=== PATIENT | female | born 1955 | race Caucasian/White ===

== ENCOUNTER 2017-06-11 22:54 | Emergency (ER) | payer OTHER ==
[~2017-06-11] VITALS: Ht 167.6 cm; Wt 73.1 kg
[2017-06-11 22:56] VITALS: TEMP 36.5; Ht 167.6 cm; Wt 73.1 kg
[2017-06-11] MEDS ORDERED: ASPIRIN 324 MG CHEW PO STA (23:11)
[2017-06-11] MEDS ORDERED: LISI2.5T5 PO (23:34)
[2017-06-11] MEDS ORDERED: LEVO112T2 PO (23:36)
[2017-06-11] MEDS ORDERED: LEVO100T PO (23:36)
--- NOTE | 2017-06-11 23:36 | EMERGENCY ROOM VISIT NOTE ---
History Report prepared by Yuan: Abdelrahman Lobo Under the Supervision of: Dr. Jessika Arias M.D. First contact with patient: 23:02 Chief Complaint: CARDIAC ASSESSMENT Stated Complaint: SHOULDER, NECK, JAW PAIN, FAST HEART RATE History of Present Illness The patient is a 61 year old female who presents to the Emergency Room for a cardiac assessment due to worsening left shoulder pain, upper back pain, and neck pain starting earlier today. She additionally states that the pain is sharp in her neck, and she states that she has some chest pain when she takes a deep breath. The patient states that she thought that she was getting a migraine since it had similar symptoms, though when she laid down she noticed her heart was racing and decided to come to the ED for evaluation. She states that she does not currently have a headache. She states that she tried a heating pad, and this did not relieve the pain. The patient states that she had the flu in April and was treated, and then got pneumonia a few weeks later, and she just finished her antibiotics a week and a half ago. The patient is additionally complaining of an earache. She did not take any aspirin, and she denies any history of blood clots, stroke, heart issues, cancer, or smoking. Source of History: patient Onset: earlier today Position: neck, shoulder (left), back (upper) Quality: sharp Timing: worsening Associated Symptoms: + chest pain, No headache Note: Associated symptoms: Heart racing and ear ache. Review of Systems See HPI for pertinent positives & negatives. A total of 10 systems reviewed and were otherwise negative. Past Medical & Surgical Medical Problems: (1) HTN (hypertension) (2) Hypothyroid Social History Smoking Status: Former Smoker Marital Status: single Housing Status: lives with family Occupation Status: employed Current/Historical Medications Scheduled Levothyroxine Sodium (Synthroid), 100 MCG PO 5XWK Levothyroxine Sodium (Synthroid), 112 MCG PO 2XWK Lisinopril (Lisinopril), 2.5 MG PO DAILY Scheduled PRN Rizatriptan Benzoate (Maxalt), 1 TAB PO UD PRN for Migraine Allergies Coded Allergies: No Known Allergies (Unverified , 06/11/17) Physical Exam Vital Signs Date Time Temp Pulse Resp B/P (MAP) Pulse Ox O2 Delivery O2 Flow Rate FiO2 06/12/17 01:25 76 17 129/87 96 06/12/17 00:53 78 15 120/76 98 Room Air 06/11/17 23:15 Room Air 06/11/17 23:08 93 06/11/17 22:56 36.5 95 20 153/92 100 Room Air Physical Exam Vital signs reviewed. General: Well-appearing female, in no significant distress. HEENT: No scleral icterus, PERRLA, neck supple. Atraumatic. Cardiovascular: Regular rate and rhythm, no extra sounds. Pulmonary: Clear to auscultation bilaterally, normal work of breathing. Abdomen: Soft, nontender, nondistended, positive bowel sounds. Musculoskeletal: Atraumatic, no peripheral edema. Neurologic: Patient awake alert and oriented x 3, full strength in all 4 extremities. Cranial nerves 2 through 12 grossly intact. Skin: Warm, dry, no rash Medical Decision & Procedures ER Provider Diagnostic Interpretation: X-ray results as stated below per interpretation by me: One View Chest; No lung consolidation. No CHF. Airway is midline. Laboratory Results 06/11/17 23:28 Red Blood Count 4.06, Mean Corpuscular Volume 87.7, Mean Corpuscular Hemoglobin 29.8, Mean Corpuscular Hemoglobin Concent 34.0, Mean Platelet Volume 9.3, Neutrophils (%) (Auto) 58.4, Lymphocytes (%) (Auto) 31.4, Monocytes (%) (Auto) 7.5, Eosinophils (%) (Auto) 2.2, Basophils (%) (Auto) 0.4, Neutrophils # (Auto) 5.67, Lymphocytes # (Auto) 3.05, Monocytes # (Auto) 0.73, Eosinophils # (Auto) 0.21, Basophils # (Auto) 0.04 06/11/17 23:28 Test 06/11/17 23:28 06/11/17 23:32 06/12/17 00:55 White Blood Count 9.71 K/uL (4.8-10.8) Red Blood Count 4.06 M/uL (4.2-5.4) Hemoglobin 12.1 g/dL (12.0-16.0) Hematocrit 35.6 % (37-47) Mean Corpuscular Volume 87.7 fL (80-100) Mean Corpuscular Hemoglobin 29.8 pg (25-34) Mean Corpuscular Hemoglobin Concent 34.0 g/dl (32-36) Platelet Count 268 K/uL (130-400) Mean Platelet Volume 9.3 fL (7.4-10.4) Neutrophils (%) (Auto) 58.4 % Lymphocytes (%) (Auto) 31.4 % Monocytes (%) (Auto) 7.5 % Eosinophils (%) (Auto) 2.2 % Basophils (%) (Auto) 0.4 % Neutrophils # (Auto) 5.67 K/uL (1.4-6.5) Lymphocytes # (Auto) 3.05 K/uL (1.2-3.4) Monocytes # (Auto) 0.73 K/uL (0.11-0.59) Eosinophils # (Auto) 0.21 K/uL (0-0.5) Basophils # (Auto) 0.04 K/uL (0-0.2) RDW Standard Deviation 42.2 fL (36.4-46.3) RDW Coefficient of Variation 13.1 % (11.5-14.5) Immature Granulocyte % (Auto) 0.1 % Immature Granulocyte # (Auto) 0.01 K/uL (0.00-0.02) Anion Gap 8.0 mmol/L (3-11) Est Creatinine Clear Calc Drug Dose 72.9 ml/min Estimated GFR () 86.9 Estimated GFR (Non- 75.0 BUN/Creatinine Ratio 23.0 (10-20) Calcium Level 8.9 mg/dl (8.5-10.1) Total Bilirubin 0.4 mg/dl (0.2-1) Direct Bilirubin < 0.1 mg/dl (0-0.2) Aspartate Amino Transf (AST/SGOT) 17 U/L (15-37) Alanine Aminotransferase (ALT/SGPT) 23 U/L (12-78) Alkaline Phosphatase 43 U/L (45-117) Total Creatine Kinase 59 U/L (26-192) Creatine Kinase MB 0.5 ng/ml (0.5-3.6) Creatine Kinase MB Ratio 0.8 (0-3.0) Total Protein 7.9 gm/dl (6.4-8.2) Albumin 4.0 gm/dl (3.4-5.0) Thyroid Stimulating Hormone (TSH) 3.740 uIu/ml (0.300-4.500) Free Thyroxine 1.13 ng/dl (0.80-1.60) Bedside D-Dimer 361 ng/mlFEU (0-450) Bedside Troponin I < 0.030 ng/ml (0-0.045) Laboratory results per my review. Medications Administered Medications (Trade) Dose Ordered Sig/Devon Route Start Time Stop Time Status Last Admin Dose Admin Aspirin (Aspirin Chew) 324 mg NOW STAT PO 06/11/17 23:11 06/11/17 23:13 DC 06/11/17 23:33 324 MG ECG Indication: chest pain Rate (beats per minute): 99 Rhythm: normal sinus Findings: no acute ischemic change, no ectopy, other (T-wave flattening in the anterior leads. QTc is 469.) Change: Patient's electrocardiogram interpreted by me. ED Course 2302: Past medical records reviewed. The patient was evaluated in room C3. A complete history and physical examination was performed. 2311: Aspirin 324mg PO 0110: Upon reevaluation, the patient appeared to have improvement of her symptoms. I discussed findings with her. She verbalized agreement of the treatment plan. She was discharged home. Medical Decision Differential diagnosis: Etiologies such as cardiac ischemia, aortic dissection, pulmonary embolism, pneumonia, pneumothorax, musculoskeletal, infections, pericarditis, myocarditis , esophageal rupture, gastrointestinal, as well as others were entertained. This patient was evaluated and appeared to be in no significant distress. IV access was obtained and laboratory work was drawn. 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 She was given aspirin 324 mg to chew. Patient in no pain at the time of my evaluation. Cardiac enzymes are negative 2. Chest x-ray is clear. EKG reveals no acute ischemia. Patient is afebrile and her d-dimer is normal. I suspect the pain is musculoskeletal in nature. The patient will be discharged to follow-up with her PCP this week. She was advised to avoid strenuous exercise until she is reevaluated. She will return to the emergency department for worsening of symptoms or any medical concerns. Medication Reconcilliation Current Medication List: was personally reviewed by me Blood Pressure Screening Patient's blood pressure: Elevated blood pressure Blood pressure disposition: Elevated BP felt to be situational Impression Primary Impression: Chest pain radiating to upper extremity Scribe Attestation The scribe's documentation has been prepared under my direction and personally reviewed by me in its entirety. I confirm that the note above accurately reflects all work, treatment, procedures, and medical decision making performed by me. Departure Information Dispostion Home / Self-Care Referrals Kathy Carrasquillo M.D. (PCP) Forms IMPORTANT VISIT INFORMATION Patient Instructions My [facility] Additional Instructions Diagnosis: Chest pain Continue medications as prescribed. Follow-up with your physician this week for reevaluation and blood pressure recheck. Avoid excessive strenuous activity until you are reevaluated and consideration of further cardiac testing as discussed with your doctor. Return to the emergency department for worsening of symptoms or any medical concerns.
[2017-06-11] MEDS ORDERED: RIZA5TAB10 PO (23:37)
[2017-06-11 23:38] LABS: BASO % 0.4 %; BASO ABS # 0.04 K/uL (0-0.2); EOS % 2.2 %; EOS ABS # 0.21 K/uL (0-0.5); HEMATOCRIT 35.6 % (37-47); HEMOGLOBIN 12.1 g/dL (12.0-16.0); IG# 0.01 K/uL (0.00-0.02); LYMPH % 31.4 %; LYMPH ABS # 3.05 K/uL (1.2-3.4); MEAN CELL VOLUME 87.7 fL (80-100); MEAN CORPUSCULAR HEMOGLOBIN 29.8 pg (25-34); MEAN PLATELET VOLUME 9.3 fL (7.4-10.4); MONO % 7.5 %; MONO ABS # 0.73 K/uL (0.11-0.59); NEUT % 58.4 %; NEUT ABS # 5.67 K/uL (1.4-6.5); PLATELET COUNT 268 K/uL (130-400); RED CELL DISTRIBUTION WIDTH CV 13.1 % (11.5-14.5); RED CELL DISTRIBUTION WIDTH SD 42.2 fL (36.4-46.3); WHITE BLOOD COUNT 9.71 K/uL (4.8-10.8)
[2017-06-11 23:56] LABS: ALT/SGPT 23 U/L (12-78); BLOOD UREA NITROGEN 20 mg/dl (7-18); CALCIUM 8.9 mg/dl (8.5-10.1); CARBON DIOXIDE 25 mmol/L (21-32); CREATININE 0.85 mg/dl (0.60-1.20); GLUCOSE 103 mg/dl (70-99); POTASSIUM 3.6 mmol/L (3.5-5.1); SODIUM 138 mmol/L (136-145)
[2017-06-12 00:01] LABS: ALKALINE PHOSPHATASE 43 U/L (45-117); AST/SGOT 17 U/L (15-37); CKMB 0.5 ng/ml (0.5-3.6); TOTAL PROTEIN 7.9 gm/dl (6.4-8.2)
[2017-06-12 01:25] VITALS: BP 129/87; PULSE 76; O2SAT 96
--- NOTE | 2017-06-12 06:40 | DIAGNOSTIC IMAGING REPORT ---
CHEST ONE VIEW PORTABLE CLINICAL HISTORY: Chest pain. COMPARISON STUDY: No previous studies for comparison. FINDINGS: Lung volumes are normal. No pneumothorax or pleural effusion is noted. There is no consolidation to suggest pneumonia and there is no evidence for pulmonary edema. Cardiac size is normal. Mediastinal contours are normal. IMPRESSION: No acute cardiopulmonary findings. Electronically signed by: Babak Vazquez M.D. 06/12/2017 6:38 AM Dictated Date/Time: 06/12/2017 6:37 AM
== END 2017-06-12 01:27 | disposition home or self-care (01) ==
LOC: C.EDB 22:56 → C.EDC 06-12 01:27
DX: R07.9 Chest pain, unspecified (principal); M25.512 Pain in left shoulder; I10 Essential (primary) hypertension; E03.9 Hypothyroidism, unspecified; Z87.891 Personal history of nicotine dependence; Z79.899 Other long term (current) drug therapy

== ENCOUNTER 2020-04-01 22:40 | Inpatient (IN) ==
[2020-04-01] MEDS ORDERED: ALBUTEROL HFA 8 GM INHALER INH ONE (23:05)
[2020-04-01] MEDS ORDERED: methylPREDNISolone 125 MG/2 ML VIAL IV STA (23:05)
[2020-04-01] MEDS ORDERED: NITROGLYCERIN SL 0.4 MG/TAB TAB SL STA (23:41)
[2020-04-01] MEDS ORDERED: NITROGLYCERIN 2% OINTMENT 30GM TUBE EXT STA (23:41)
[2020-04-01] MEDS ORDERED: FUROSEMIDE 40 MG/4 ML VIAL IV STA (23:41)
[2020-04-01 23:48] LABS: Basophils # (auto) 0.03 K/uL (0-0.2); Basophils % (auto) 0.3 %; Eosinophils # (auto) 0.13 K/uL (0-0.5); Eosinophils % (auto) 1.3 %; Hematocrit (blood only) 38.3 % (37-47); Hemoglobin 12.5 g/dL (12.0-16.0); Immature Granulocytes # (auto) 0.02 K/uL (0.00-0.02); Immature Granulocytes % (auto) 0.2 %; Lymphocytes # (auto) 2.23 K/uL (1.2-3.4); Lymphocytes % (auto) 22.5 %; Mean Corpuscular Hemoglobin 29.4 pg (25-34); Mean Corpuscular Hgb Conc 32.6 g/dL (32-36); Mean Corpuscular Volume 90.1 fL (80-100); Mean Platelet Volume 9.7 fL (7.4-10.4); Monocytes # (auto) 0.67 K/uL (0.11-0.59); Monocytes % (auto) 6.8 %; Neutrophils # (auto) 6.82 K/uL (1.4-6.5); Neutrophils % (auto) 68.9 %; Platelet Count 428 K/uL (130-400); RDW Coefficient of Variation 13.7 % (11.5-14.5); RDW Standard Deviation 45.1 fL (36.4-46.3); Red Blood Count 4.25 M/uL (4.2-5.4)
--- NOTE | 2020-04-01 23:58 | Emergency Department Note ---
Impression & Plan Acute dyspnea, Pulmonary edema ED Provider Note INFORMANT: Patient ED PROVIDER(S): Ivan Bernardo MD CHIEF COMPLAINT: Shortness of breath PLAN: Disposition: Admitted Condition: Good MEDICAL DECISION MAKING: Patient presented with acute dyspnea and had pink frothy sputum with rales on examination. She was moderately hypertensive and this was concerning for flash pulmonary edema. Her ECG did not reveal any acute ischemic findings. She was experiencing some chest discomfort. She underwent a work-up. She was initially given Solu-Medrol and albuterol which did not seem to help. Chest x-ray was performed and she was found to have pulmonary edema and fluid in the right fissure. This was concerning for a cardiac etiology. Her CBC and chemistry panel was unremarkable. Her troponin was mildly elevated as was her D-dimer. BMP was within normal limits. The patient was given sublingual nitro x1, nitro paste and 20 mg of IV Lasix. This in conjunction with supplemental oxygen made her feel much better. Her breathing was easier. Her blood pressure was improved. She had a mild headache after the nitro and was given Tylenol. The patient underwent CT imaging which revealed findings consistent with pulmonary edema. Incidentally she also was found to have 2 left-sided rib fractures. The patient notes falling about 3 weeks ago onto her left side accidentally. There is no evidence of pulmonary embolism or pneumothorax. No obvious pneumonia. Patient's Covid testing was negative. She was given oral aspirin. Repeat ECG was performed and again did not reveal any ST elevation however there were T wave inversions inferiorly. I suspect the patient is suffering from pulmonary edema and this is likely due to an acute non-ST elevation [place]. IV heparin was initiated. The patient was educated. Consultation was made with Dr. Luis Carlos Martínez, [facility]. The patient was evaluated in the ER and admitted for further management. Triage Nursing notes reviewed and agree them. Vital Signs: reviewed and remarkable for hypertension and increased respiratory rate Differential diagnosis: Reactive airway disease, pneumonia, pneumothorax, COPD, CHF, infections, cardiac ischemia, pulmonary embolism, musculoskeletal, gastrointestinal, as well as other pathologies. Diagnostics interpreted by me: ECG: Twelve-lead ECG reveals a normal sinus rhythm at 92 bpm. Left atrial enlargement present. No ST elevation or depression. Normal axis and QRS. No PVCs. ECG #2 reveals a normal sinus rhythm at 87 bpm. There is left atrial enlargement. Inferior Q waves and T wave inversions noted. No ST elevation. No PVCs or PACs. Normal axis. When compared to the first ECG the T wave invers ions are new. Cardiac Monitoring: Cardiac monitoring ordered by me: The patient was placed on continuous cardiac monitoring and observed. It revealed a normal sinus rhythm at 99 beats per minute without ectopy or evidence of dysrhythmia. Imaging studies: Portable chest x-ray reveals mild pulmonary edema, fluid in the right fissure. No free air. Normal mediastinum. When compared to prior the fluid and edema are new. Consultation(s): [facility] HPI: The patient is a 64 year old female who presents to the Emergency Room with complaints of acute shortness of breath. This started this evening around 8:00 and is worsening. The patient also notes the following associated symptoms, coughing pink frothy sputum, chest discomfort with breathing. The patient has found no relieving factors. Current pain is rated as 3/10. Denies any Covid exposures. No loss of taste or smell. No prior history of the same. The patient does have a history of hypertension. Pt denies LOC, headache, fevers, chills, diaphoresis, visual changes, neck pain, nausea, vomiting, abdominal thais n, back pain, melena, hematochezia, urinary symptoms, numbness, weakness, lymphadenopathy, rash, or other complaints. ROS: See above HPI for pertinent positives & negatives. A total of 10 systems reviewed and were otherwise negative. PAST MEDICAL HISTORY:See Below, hypertension PAST SURGICAL HISTORY:See Below, FAMILY HISTORY:See Below SOCIAL HISTORY:See Below, no smoking HOME MEDICATIONS:See Below ALLERGIES:See Below VITALS:See Below PHYSICAL EXAMINATION: GENERAL: Awake, alert, dyspneic, in mild distress HENT: Normocephalic, atraumatic. Oropharynx unremarkable. EYES: Normal conjunctiva. Sclera non-icteric. NECK: Inspection normal. Non-tender. Supple. No nuchal rigidity. FROM. No masses. RESPIRATORY: Increased respiratory effort. Scattered wheezing and rales noted bilaterally. Cough productive of pink sputum. No obvious hemoptysis. CARDIAC: Borderline tachycardic rate. Normal rhythm. No murmurs. No rubs. Extremities warm and well perfused. Pulses equal. No JVD. GI: Soft, non-distended. No tenderness to palpation. No rebound or guarding. No masses. RECTAL: Deferred. MUSCULOSKELETAL: Atraumatic. Chest examination reveals no tenderness. The back is symmetrical on inspection without obvious abnormality. There is no CVA tenderness to palpation. No joint edema. LOWER EXTREMITIES: Calves are equal size bilaterally and non-tender. No edema. No discoloration. NEURO: Normal sensorium. No sensory or motor deficits noted. SKIN: No rash or jaundice noted. ED COURSE: Critical Care: I have personally spent greater than 40 minutes of critical care time in the direct management of this patient. This includes bedside care, interpretation of diagnostic studies, and testing, discussion with consultants, patient, and other required patient management activities. These minutes are in excess of all separately billable procedures. Ivan Bernardo MD Past Med/Surg History Medical History (Updated 04/01/20 @ 23:54 by Ivan Bernardo MD) HTN (hypertension) Hypothyroid Migraine Social History Smoking Status: Former smoker Feels Safe at Home: Yes Allergies Allergies Allergy/AdvReac Type Severity Reaction Status Date / Time latex Allergy Intermediate RASH, SKIN Verified 04/02/20 00:01 IRRITATION nickel Allergy Intermediate RASH, SKIN Verified 04/02/20 00:01 IRRITATION IV contrast Allergy Hives Uncoded 04/02/20 00:57 Home Meds Home Medications Medication Instructions Recorded Confirmed levothyroxine [Synthroid] 112 mcg PO DAILYBB 09/25/19 04/02/20 lisinopril [Zestril] 2.5 mg PO DAILYBB 09/25/19 04/02/20 loratadine [Claritin] 10 mg PO DAILYBB 09/25/19 04/02/20 rizatriptan [Maxalt] 10 mg PO Q2H PRN MDD 30 mg 09/25/19 04/02/20 triamcinolone acetonide [Triderm] 1 applic TOPICAL BID PRN 09/25/19 04/02/20 vitamin B complex 1 cap PO DAILYBB 09/25/19 04/02/20 Results & Data (ED) Vital Signs Vital Signs - 24 hr 04/01/20 22:42 04/01/20 23:43 04/01/20 23:45 Temperature 36.6 C Temperature Source Oral Pulse Rate 102 H Pulse Rate [Apical] 90 86 Pulse Rate from SpO2 Sensor Respiratory Rate 18 28 H 28 H Respiratory Effort / Characteristics Non-Labored Non-Labored Spontaneous Non-Labored Spontaneous Respiratory Depth Normal Blood Pressure 184/109 H Blood Pressure [Left Arm] 150/100 H 147/102 H Blood Pressure Mean 134 Blood Pressure Mean [Left Arm] 116 117 Pulse Oximetry 95 98 98 Oxygen Delivery Method Room Air Nasal Cannula Nasal Cannula Oxygen Flow Rate 3 2 Sepsis Recent Fever Within 48 Hours No Sepsis New/Unexplained Change in Mental Status No Sepsis Action Taken by Nursing No Action Required 04/01/20 23:58 04/01/20 23:59 04/02/20 00:00 Temperature Temperature Source Pulse Rate Pulse Rate [Apical] 88 86 Pulse Rate from SpO2 Sensor Respiratory Rate 28 H 30 H Respiratory Effort / Characteristics Non-Labored Spontaneous Non-Labored Spontaneous Spontaneous Respiratory Depth Blood Pressure Blood Pressure [Left Arm] 160/113 H 138/95 Blood Pressure Mean Blood Pressure Mean [Left Arm] 128 109 Pulse Oximetry 93 99 Oxygen Delivery Method Room Air Nasal Cannula Oxygen Flow Rate 3 Sepsis Recent Fever Within 48 Hours Sepsis New/Unexplained Change in Mental Status Sepsis Action Taken by Nursing 04/02/20 00:04 04/02/20 00:16 04/02/20 00:30 Temperature Temperature Source Pulse Rate 95 H 94 H Pulse Rate [Apical] 94 H Pulse Rate from SpO2 Sensor Respiratory Rate 24 31 H 30 H Respiratory Effort / Characteristics Non-Labored Spontaneous Respiratory Depth Blood Pressure 150/97 H Blood Pressure [Left Arm] 137/93 Blood Pressure Mean 111 Blood Pressure Mean [Left Arm] 107 Pulse Oximetry 99 100 100 Oxygen Delivery Method Nasal Cannula Nasal Cannula Nasal Cannula Oxygen Flow Rate 3 3 Sepsis Recent Fever Within 48 Hours Sepsis New/Unexplained Change in Mental Status Sepsis Action Taken by Nursing 04/02/20 01:19 04/02/20 01:20 Temperature Temperature Source Pulse Rate 95 H 95 H Pulse Rate [Apical] Pulse Rate from SpO2 Sensor 96 H 95 H Respiratory Rate 21 23 Respiratory Effort / Characteristics Respiratory Depth Blood Pressure 137/98 Blood Pressure [Left Arm] Blood Pressure Mean 109 Blood Pressure Mean [Left Arm] Pulse Oximetry 97 98 Oxygen Delivery Method Room Air Room Air Oxygen Flow Rate Sepsis Recent Fever Within 48 Hours Sepsis New/Unexplained Change in Mental Status Sepsis Action Taken by Nursing Laboratory Data Result diagrams: 04/01/20 23:03 04/01/20 23:03 Lab Results 04/01/20 04/01/20 04/01/20 Range/Units 23:03 23:03 23:03 WBC 9.90 (4.8-10.8) K/uL RBC 4.25 (4.2-5.4) M/uL Hgb 12.5 (12.0-16.0) g/dL Hct 38.3 (37-47) % MCV 90.1 (80-100) fL MCH 29.4 (25-34) pg MCHC 32.6 (32-36) g/dL RDW Std Deviation 45.1 (36.4-46.3) fL RDW Coeff of Jayson 13.7 (11.5-14.5) % Plt Count 428 H (130-400) K/uL MPV 9.7 (7.4-10.4) fL Immature Gran % (Auto) 0.2 % Neut % (Auto) 68.9 % Lymph % (Auto) 22.5 % [place] % (Auto) 6.8 % Eos % (Auto) 1.3 % Baso % (Auto) 0.3 % Neut # (Auto) 6.82 H (1.4-6.5) K/uL Lymph # (Auto) 2.23 (1.2-3.4) K/uL [place] # (Auto) 0.67 H (0.11-0.59) K/uL Eos # (Auto) 0.13 (0-0.5) K/uL Baso # (Auto) 0.03 (0-0.2) K/uL Immature Gran # (Auto) 0.02 (0.00-0.02) K/uL PT 10.3 (9.0-12.0) Seconds INR 1.0 (0.9-1.1) APTT 27.2 (21.0-31.0) Seconds PTT Ratio 1.0 D-Dimer 1020 H* (0-500) ug/L FEU Sodium 138 (136-145) mmol/L Potassium 3.7 (3.5-5.1) mmol/L Chloride 106 (98-107) mmol/L Carbon Dioxide 26 (21-32) mmol/L Anion Gap 6.0 (3-11) BUN 22 H (7-18) mg/dl Creatinine 0.84 (0.6-1.2) mg/dl Est Cr Clr Drug Dosing 70.4 ml/min Est GFR ( Amer) 86.3 Est GFR (Non-Af Amer) 74.5 BUN/Creatinine Ratio 25.6 H (10-20) Glucose 110 H (70-99) mg/dl Lactate (0.4-2.0) mmol/L Calcium 8.8 (8.5-10.1) mg/dl Magnesium 2.1 (1.8-2.4) mg/dl Total Bilirubin 0.4 (0.2-1) mg/dl AST 21 (15-37) U/L ALT 20 (12-78) U/L Alkaline Phosphatase 67 (45-117) U/L Troponin I 0.702 H* (0-0.045) ng/ml NT-Pro-B Natriuret Pep 343 (0-900) pg/ml Total Protein 7.7 (6.4-8.2) gm/dl Albumin 3.8 (3.4-5.0) gm/dl Globulin 3.9 (2.5-4.0) gm/dl Albumin/Globulin Ratio 1.0 (0.9-2) Urine Color Urine Appearance (Clear) Urine pH (4.5-7.5) Ur Specific [place] (1.000-1.030) Urine Protein (Negative) Urine Glucose (UA) (Negative) Urine Ketones (Negative) Urine Blood (Negative) Urine Nitrite (Negative) Urine Bilirubin (Negative) Urine Urobilinogen (Negative) Ur Leukocyte Esterase (Negative) COVID-19 Eval Order COVID-19 PCR (Negative) Influenza Type A (PCR) (Neg) Influenza Type B (PCR) (Neg) RSV (RT-PCR) (Neg) 04/01/20 04/01/20 04/01/20 Range/Units 23:03 23:03 23:45 WBC (4.8-10.8) K/uL RBC (4.2-5.4) M/uL Hgb (12.0-16.0) g/dL Hct (37-47) % MCV (80-100) fL MCH (25-34) pg MCHC (32-36) g/dL RDW Std Deviation (36.4-46.3) fL RDW Coeff of Jayson (11.5-14.5) % Plt Count (130-400) K/uL MPV (7.4-10.4) fL Immature Gran % (Auto) % Neut % (Auto) % Lymph % (Auto) % [place] % (Auto) % Eos % (Auto) % Baso % (Auto) % Neut # (Auto) (1.4-6.5) K/uL Lymph # (Auto) (1.2-3.4) K/uL [place] # (Auto) (0.11-0.59) K/uL Eos # (Auto) (0-0.5) K/uL Baso # (Auto) (0-0.2) K/uL Immature Gran # (Auto) (0.00-0.02) K/uL PT (9.0-12.0) Seconds INR (0.9-1.1) APTT (21.0-31.0) Seconds PTT Ratio D-Dimer (0-500) ug/L FEU Sodium (136-145) mmol/L Potassium (3.5-5.1) mmol/L Chloride (98-107) mmol/L Carbon Dioxide (21-32) mmol/L Anion Gap (3-11) BUN (7-18) mg/dl Creatinine (0.6-1.2) mg/dl Est Cr Clr Drug Dosing ml/min Est GFR ( Amer) Est GFR (Non-Af Amer) BUN/Creatinine Ratio (10-20) Glucose (70-99) mg/dl Lactate 0.9 (0.4-2.0) mmol/L Calcium (8.5-10.1) mg/dl Magnesium (1.8-2.4) mg/dl Total Bilirubin (0.2-1) mg/dl AST (15-37) U/L ALT (12-78) U/L Alkaline Phosphatase (45-117) U/L Troponin I (0-0.045) ng/ml NT-Pro-B Natriuret Pep (0-900) pg/ml Total Protein (6.4-8.2) gm/dl Albumin (3.4-5.0) gm/dl Globulin (2.5-4.0) gm/dl Albumin/Globulin Ratio (0.9-2) Urine Color Urine Appearance (Clear) Urine pH (4.5-7.5) Ur Specific [place] (1.000-1.030) Urine Protein (Negative) Urine Glucose (UA) (Negative) Urine Ketones (Negative) Urine Blood (Negative) Urine Nitrite (Negative) Urine Bilirubin (Negative) Urine Urobilinogen (Negative) Ur Leukocyte Esterase (Negative) COVID-19 Eval Order CovFluRsv at [facility] COVID-19 PCR NEGATIVE (Negative) Influenza Type A (PCR) Negative (Neg) Influenza Type B (PCR) Negative (Neg) RSV (RT-PCR) Negative (Neg) 04/02/20 Range/Units 00:17 WBC (4.8-10.8) K/uL RBC (4.2-5.4) M/uL Hgb (12.0-16.0) g/dL Hct (37-47) % MCV (80-100) fL MCH (25-34) pg MCHC (32-36) g/dL RDW Std Deviation (36.4-46.3) fL RDW Coeff of Jayson (11.5-14.5) % Plt Count (130-400) K/uL MPV (7.4-10.4) fL Immature Gran % (Auto) % Neut % (Auto) % Lymph % (Auto) % [place] % (Auto) % Eos % (Auto) % Baso % (Auto) % Neut # (Auto) (1.4-6.5) K/uL Lymph # (Auto) (1.2-3.4) K/uL [place] # (Auto) (0.11-0.59) K/uL Eos # (Auto) (0-0.5) K/uL Baso # (Auto) (0-0.2) K/uL Immature Gran # (Auto) (0.00-0.02) K/uL PT (9.0-12.0) Seconds INR (0.9-1.1) APTT (21.0-31.0) Seconds PTT Ratio D-Dimer (0-500) ug/L FEU Sodium (136-145) mmol/L Potassium (3.5-5.1) mmol/L Chloride (98-107) mmol/L Carbon Dioxide (21-32) mmol/L Anion Gap (3-11) BUN (7-18) mg/dl Creatinine (0.6-1.2) mg/dl Est Cr Clr Drug Dosing ml/min Est GFR ( Amer) Est GFR (Non-Af Amer) BUN/Creatinine Ratio (10-20) Glucose (70-99) mg/dl Lactate (0.4-2.0) mmol/L Calcium (8.5-10.1) mg/dl Magnesium (1.8-2.4) mg/dl Total Bilirubin (0.2-1) mg/dl AST (15-37) U/L ALT (12-78) U/L Alkaline Phosphatase (45-117) U/L Troponin I (0-0.045) ng/ml NT-Pro-B Natriuret Pep (0-900) pg/ml Total Protein (6.4-8.2) gm/dl Albumin (3.4-5.0) gm/dl Globulin (2.5-4.0) gm/dl Albumin/Globulin Ratio (0.9-2) Urine Color Yellow Urine Appearance Clear (Clear) Urine pH 5.0 (4.5-7.5) Ur Specific [place] 1.013 (1.000-1.030) Urine Protein Negative (Negative) Urine Glucose (UA) Negative (Negative) Urine Ketones Trace H (Negative) Urine Blood Negative (Negative) Urine Nitrite Negative (Negative) Urine Bilirubin Negative (Negative) Urine Urobilinogen Negative (Negative) Ur Leukocyte Esterase Negative (Negative) COVID-19 Eval Order COVID-19 PCR (Negative) Influenza Type A (PCR) (Neg) Influenza Type B (PCR) (Neg) RSV (RT-PCR) (Neg) Administered Medications Discontinued Medications Acetaminophen (Acetaminophen 500 Mg Tab) 1,000 mg PO NOW STA Stop: 04/02/20 00:07 Last Admin: 04/02/20 00:11 Dose: 1,000 mg Documented by: [id number] Albuterol (Albuterol Hfa 8 Gm Inhaler) 6 puffs INH NOW ONE Stop: 04/01/20 23:06 Last Admin: 04/01/20 23:16 Dose: 6 puffs Documented by: [id number] Diphenhydramine HCl (Diphenhydramine 50 Mg/Ml Vial) 50 mg IV NOW STA Stop: 04/02/20 00:53 Last Admin: 04/02/20 00:58 Dose: 50 mg Documented by: [id number] Furosemide (Furosemide 40 Mg/4 Ml Vial) 20 mg IV NOW STA Stop: 04/01/20 23:42 Last Admin: 04/01/20 23:56 Dose: 20 mg Documented by: [id number] Famotidine (Pepcid 20mg Iv Push) 20 mg in 5 mls @ 2.5 mls/min IV NOW STA Stop: 04/02/20 00:53 Last Admin: 04/02/20 00:55 Dose: 2.5 mls/min Documented by: [id number] Ioversol (Optiray 320 125ml) 117 ml IV ONCE ONE Stop: 04/02/20 00:35 Last Admin: 04/02/20 00:35 Dose: 117 ml Documented by: [id number] Methylprednisolone (Methylprednisolone 125 Mg/2 Ml Vial) 125 mg IV NOW STA Stop: 04/01/20 23:06 Last Admin: 04/01/20 23:32 Dose: 125 mg Documented by: [id number] Nitroglycerin (Nitroglycerin Sl 0.4 Mg/Tab Tab) 0.4 mg SL NOW STA Stop: 04/01/20 23:42 Last Admin: 04/01/20 23:55 Dose: 0.4 mg Documented by: [id number] Nitroglycerin (Nitroglycerin 2% Ointment 30gm Tube) 0.5 inch EXT NOW STA Stop: 04/01/20 23:42 Last Admin: 04/01/20 23:56 Dose: 0.5 inch Documented by: [id number] Discharge Plan Visit Data Chief Complaint: Respiratory Problems Stated Complaint: RATTLE IN CHEST ED Provider: Ivan Bernardo Discharge Problem: Acute dyspnea, Pulmonary edema Forms Stand Alone Forms: [facility] Prescriptions Prescriptions: No Action rizatriptan [Maxalt] 10 mg tablet 10 mg PO Q2H MDD 30 mg PRN (Reason: Migraine Headache) RF: 0 triamcinolone acetonide [Triderm] 0.1 % cream 1 applic TOPICAL BID PRN (Reason: Itching) RF: 0 lisinopril [Zestril] 2.5 mg tablet 2.5 mg PO DAILYBB RF: 0 loratadine [Claritin] 10 mg Tablet 10 mg PO DAILYBB RF: 0 vitamin B complex Capsule 1 cap PO DAILYBB RF: 0 levothyroxine [Synthroid] 112 mcg tablet 112 mcg PO DAILYBB RF: 0
[2020-04-02 00:06] LABS: Albumin Level 3.8 gm/dl (3.4-5.0); BUN Creatinine Ratio 25.6 (10-20); Calcium 8.8 mg/dl (8.5-10.1); Creatinine Clr Calc Pharmacy 70.4 ml/min; Est GFR (African American) 86.3; Est GFR (Non-African American) 74.5; Magnesium 2.1 mg/dl (1.8-2.4); Potassium 3.7 mmol/L (3.5-5.1)
[2020-04-02] MEDS ORDERED: ACETAMINOPHEN 500 MG TAB PO STA (00:06)
[2020-04-02 00:14] LABS: Partial Thromboplastin Time 27.2 Seconds (21.0-31.0); Prothrombin Time 10.3 Seconds (9.0-12.0)
[2020-04-02 00:17] LABS: D Dimer 1020 ug/L FEU (0-500)
[2020-04-02 00:18] LABS: Bilirubin,Total 0.4 mg/dl (0.2-1); Globulin 3.9 gm/dl (2.5-4.0); Total Protein 7.7 gm/dl (6.4-8.2); Troponin I 0.702 ng/ml (0-0.045)
[2020-04-02 00:30] LABS: Appearance Urine Clear (Clear); Bilirubin Urine Negative (Negative); Blood Urine Negative (Negative); Color Urine Yellow; Glucose Urine UA Negative (Negative); Ketones Urine Trace (Negative); Leukocyte Esterase Urine Negative (Negative); Nitrite Urine Negative (Negative); Protein Urine Negative (Negative); Specific Gravity Urine 1.013 (1.000-1.030); Urobilinogen Urine Negative (Negative)
[2020-04-02] MEDS ORDERED: OPTIRAY 320 125ml IV ONE (00:34)
[2020-04-02 00:41] LABS: Influenza A virus by PCR Negative (Neg); Influenza B virus by PCR Negative (Neg); RSV by PCR Negative (Neg); SARS CoV2 RNA(COVID-19) InHosp NEGATIVE (Negative)
[2020-04-02] MEDS ORDERED: FAMOTIDINE 20MG IV PUSH 20 MG/5 ML SYR IV STA (00:52)
[2020-04-02] MEDS ORDERED: diphenhydrAMINE 50 MG/ML VIAL IV STA (00:52)
[2020-04-02] MEDS ORDERED: ASPIRIN CHEW 324 MG PO STA (01:48)
[2020-04-02] MEDS ORDERED: HEPARIN SOD (PORCINE) 1000 UNIT/ML 10 ML VIAL ONE (02:10)
[2020-04-02] MEDS: HEPARIN SODIUM/DEXTROSE 25,000 UNITS/500 ML BAG IV SCH ×2 (02:14→21:37)
[2020-04-02] MEDS ORDERED: METOPROLOL TARTRATE 25 MG TAB PO STA (02:17)
--- NOTE | 2020-04-02 03:06 | History & Physical Report ---
Date of Service April 02, 2020 Assessment & Plan (1) Acute CHF: Secondary to NSTEMI ? Tachycardia induced cardiomyopathy (hx palpitations the last 4 months, episodic tachyarrhythmia on outpatient Zio patch) hypertension, stable hypothyroidism, euthyroid as of today's TSH prediabetes, hemoglobin A1c of 5.18 December 2019 past tobacco use PCU Continue aspirin, IV heparin for ACS Initiate beta-teresita for ACS and new onset CHF Trend troponin Check lipid profile TTE, Cardiology consult RE ACS, CHF Strict I/Os, daily weights, CHF education N.p.o. until patient seen by cardiology in anticipation of procedure DVT prophylaxis. IV heparin Full code Text document was generated using [employer] voice recognition software. It may contain grammatical or spelling errors. Kindly contact undersigned for clarification of any documentation item in question. History of Present Illness Chief Complaint: Chest pain, shortness of breath Primary Care Provider: Oseas Holguin MD History obtained from patient and records. Medical history significant for hypertension, hypothyroidism, prediabetes, past tobacco use. In the last 4 months patient would have daily palpitations accompanied by transient chest tightness symptoms. No shortness of breath. Not related to exertion. No unusual stress at home. No inordinate caffeine or alcohol intake. Blood pressure controlled at home as per patient. Outpatient Zio patch monitor requested by PCP showed brief episodes of SVT. Medication offered to slow heartbeat if significantly bothersome as per outpatient documentation. Persistent daily palpitations with chest tightness symptoms as per patient. Around 8 PM last night patient noted chest heaviness across her chest more pronounced than usual chest tightness with palpitations. Shortness of breath with expectoration of pink frothy sputum. No fluid retention. No fever, no chills. No recent flulike illness/COVID-19 contacts. At the ER, patient given Solu-Medrol and bronchodilator treatment for possible bronchitis. Aspirin, nitroglycerin, IV heparin later administered for possible ACS. Lasix given for CHF. Patient currently feeling better. 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 Allergies Allergy/AdvReac Type Severity Reaction Status Date / Time latex Allergy Intermediate RASH, SKIN Verified 04/02/20 00:01 IRRITATION nickel Allergy Intermediate RASH, SKIN Verified 04/02/20 00:01 IRRITATION Iodinated Contrast Media Allergy Unknown Hives Verified 04/02/20 06:28 Home Medications Medication Instructions Recorded Confirmed Type levothyroxine [Synthroid] 112 mcg PO DAILYBB 09/25/19 04/02/20 History lisinopril [Zestril] 2.5 mg PO DAILYBB 09/25/19 04/02/20 History loratadine [Claritin] 10 mg PO DAILYBB 09/25/19 04/02/20 History rizatriptan [Maxalt] 10 mg PO Q2H PRN MDD 30 mg 09/25/19 04/02/20 History triamcinolone acetonide [Triderm] 1 applic TOPICAL BID PRN 09/25/19 04/02/20 His tory vitamin B complex 1 cap PO DAILYBB 09/25/19 04/02/20 History Past Med/Surg History Medical History (Updated 04/02/20 @ 08:26 by Luis Carlos Martínez MD) HTN (hypertension) Hypothyroid Migraine Social History Smoking Status: Former smoker Hx Alcohol Use: Yes Alcohol type: hard liquor Hx Substance Use: No Preferred Language: Albanian Communication Ability: Effective Beliefs That Will Affect Care: None Current Living Situation: Family Other Information That Helps Us Care for You: No Feels Safe at Home: Yes Safety Concerns: Feels Safe At This Time Assistive Devices: Glasses Review of Systems Review of Systems: As per HPI, all 10 systems reviewed, all other ROS negative Physical Exam Physical Exam: GENERAL: Comfortable, pleasant, no respiratory distress SKIN: Normal color, warm HEENT: Bespectacled, pink palpebral conjunctivae, no ptosis, moist buccal mucosa, nasal cannula in place NECK : Supple, no tenderness CHEST : Decreased breath sounds, minimal left lateral chest wall tenderness HEART : RRR, no obvious murmurs ABDOMEN: Soft, nontender EXTREMITIES : No LE swelling/tenderness, no other conspicuous deformities noted NEUROLOGIC : Coherent, no facial asymmetry, no other gross focality Results & Data Results & Data ([facility]) Vital Signs (Past 12 Hours) Vital Signs Temp Pulse Pulse Resp BP BP Pulse Ox 04/02/20 02:30 81 19 124/89 98 04/02/20 02:15 103 H 12 99 04/02/20 02:00 89 21 135/92 99 04/02/20 01:45 96 H 19 142/89 H 97 04/02/20 01:30 92 H 17 136/93 98 04/02/20 01:20 95 H 23 137/98 98 04/02/20 01:19 95 H 21 97 04/02/20 00:30 94 H 30 H 150/97 H 100 04/02/20 00:16 94 H 31 H 137/93 100 04/02/20 00:04 95 H 24 99 04/02/20 00:00 86 30 H 138/95 99 04/01/20 23:59 88 28 H 160/113 H 93 04/01/20 23:45 86 28 H 147/102 H 98 04/01/20 23:43 90 28 H 150/100 H 98 04/01/20 22:42 36.6 C 102 H 18 184/109 H 95 Laboratory Results Laboratory Results WBC 9.90 K/uL (4.8-10.8) 04/01/20 23:03 RBC 4.25 M/uL (4.2-5.4) 04/01/20 23:03 Hgb 12.5 g/dL (12.0-16.0) 04/01/20 23:03 Hct 38.3 % (37-47) 04/01/20 23:03 MCV 90.1 fL (80-100) 04/01/20 23:03 MCH 29.4 pg (25-34) 04/01/20 23:03 MCHC 32.6 g/dL (32-36) 04/01/20 23:03 RDW Std Deviation 45.1 fL (36.4-46.3) 04/01/20 23:03 RDW Coeff of Jayson 13.7 % (11.5-14.5) 04/01/20 23:03 Plt Count 428 K/uL (130-400) H 04/01/20 23:03 MPV 9.7 fL (7.4-10.4) 04/01/20 23:03 Immature Gran % (Auto) 0.2 % 04/01/20 23:03 Neut % (Auto) 68.9 % 04/01/20 23:03 Lymph % (Auto) 22.5 % 04/01/20 23:03 [place] % (Auto) 6.8 % 04/01/20 23:03 Eos % (Auto) 1.3 % 04/01/20 23:03 Baso % (Auto) 0.3 % 04/01/20 23:03 Neut # (Auto) 6.82 K/uL (1.4-6.5) H 04/01/20 23:03 Lymph # (Auto) 2.23 K/uL (1.2-3.4) 04/01/20 23:03 [place] # (Auto) 0.67 K/uL (0.11-0.59) H 04/01/20 23:03 Eos # (Auto) 0.13 K/uL (0-0.5) 04/01/20 23:03 Baso # (Auto) 0.03 K/uL (0-0.2) 04/01/20 23:03 Immature Gran # (Auto) 0.02 K/uL (0.00-0.02) 04/01/20 23:03 PT 10.3 Seconds (9.0-12.0) 04/01/20 23:03 INR 1.0 (0.9-1.1) 04/01/20 23:03 APTT 27.2 Seconds (21.0-31.0) 04/01/20 23:03 PTT Ratio 1.0 04/01/20 23:03 D-Dimer 1020 ug/L FEU (0-500) H* 04/01/20 23:03 Sodium 138 mmol/L (136-145) 04/01/20 23:03 Potassium 3.7 mmol/L (3.5-5.1) 04/01/20 23:03 Chloride 106 mmol/L (98-107) 04/01/20 23:03 Carbon Dioxide 26 mmol/L (21-32) 04/01/20 23:03 Anion Gap 6.0 (3-11) 04/01/20 23:03 BUN 22 mg/dl (7-18) H 04/01/20 23:03 Creatinine 0.84 mg/dl (0.6-1.2) 04/01/20 23:03 Est Cr Clr Drug Dosing 70.4 ml/min 04/01/20 23:03 Est GFR ( Amer) 86.3 04/01/20 23:03 Est GFR (Non-Af Amer) 74.5 04/01/20 23:03 BUN/Creatinine Ratio 25.6 (10-20) H 04/01/20 23:03 Glucose 110 mg/dl (70-99) H 04/01/20 23:03 Lactate 0.9 mmol/L (0.4-2.0) 04/01/20 23:45 Calcium 8.8 mg/dl (8.5-10.1) 04/01/20 23:03 Magnesium 2.1 mg/dl (1.8-2.4) 04/01/20 23:03 Total Bilirubin 0.4 mg/dl (0.2-1) 04/01/20 23:03 AST 21 U/L (15-37) 04/01/20 23:03 ALT 20 U/L (12-78) 04/01/20 23:03 Alkaline Phosphatase 67 U/L (45-117) 04/01/20 23:03 Troponin I 0.702 ng/ml (0-0.045) H* 04/01/20 23:03 NT-Pro-B Natriuret Pep 343 pg/ml (0-900) 04/01/20 23:03 Total Protein 7.7 gm/dl (6.4-8.2) 04/01/20 23:03 Albumin 3.8 gm/dl (3.4-5.0) 04/01/20 23:03 Globulin 3.9 gm/dl (2.5-4.0) 04/01/20 23:03 Albumin/Globulin Ratio 1.0 (0.9-2) 04/01/20 23:03 TSH 4.000 uIu/ml (0.300-4.500) 04/01/20 23:03 Urine Color Yellow 04/02/20 00:17 Urine Appearance Clear (Clear) 04/02/20 00:17 Urine pH 5.0 (4.5-7.5) 04/02/20 00:17 Ur Specific [place] 1.013 (1.000-1.030) 04/02/20 00:17 Urine Protein Negative (Negative) 04/02/20 00:17 Urine Glucose (UA) Negative (Negative) 04/02/20 00:17 Urine Ketones Trace (Negative) H 04/02/20 00:17 Urine Blood Negative (Negative) 04/02/20 00:17 Urine Nitrite Negative (Negative) 04/02/20 00:17 Urine Bilirubin Negative (Negative) 04/02/20 00:17 Urine Urobilinogen Negative (Negative) 04/02/20 00:17 Ur Leukocyte Esterase Negative (Negative) 04/02/20 00:17 COVID-19 Eval Order CovFluRsv at [facility] 04/01/20 23:03 COVID-19 PCR NEGATIVE (Negative) 04/01/20 23:03 Influenza Type A (PCR) Negative (Neg) 04/01/20 23:03 Influenza Type B (PCR) Negative (Neg) 04/01/20 23:03 RSV (RT-PCR) Negative (Neg) 04/01/20 23:[address] chest initial read: Extensive groundglass pulmonary opacities with interstitial thickening consider pulmonary edema. No PE. Anterior left fourth rib fracture appears to be acute or subacute. EKG as per my interpretation: Rate 90, NSR, normal axis, no ischemia
[2020-04-02] MEDS ORDERED: ALBUT/IPRATROP 3MG/0.5MG NEB 3 ML VIAL NEB STA (03:13)
[2020-04-02] MEDS ORDERED: LORazepam 0.25 MG/0.5 ML VIAL IV PRN (05:57)
[2020-04-02] MEDS ORDERED: ACETAMINOPHEN 325 MG TAB PO PRN (05:57)
[2020-04-02] MEDS ORDERED: PROMETHAZINE HCL 6.25 MG in SODIUM CHLORIDE 0.9% 50 ML IV PRN (05:57)
[2020-04-02] MEDS ORDERED: MoRPHine SULFATE 2 MG/ML CARP IV PRN (05:57)
[2020-04-02] MEDS ORDERED: traMADol HCL 50 MG TABLET PO PRN (05:57)
[2020-04-02] MEDS ORDERED: NITROGLYCERIN SL 0.4 MG/TAB TAB SL PRN (05:57)
[2020-04-02 07:05] LABS: Basophils # (auto) 0.01 K/uL (0-0.2); Basophils % (auto) 0.1 %; Hematocrit (blood only) 34.4 % (37-47); Hemoglobin 11.5 g/dL (12.0-16.0); Immature Granulocytes # (auto) 0.02 K/uL (0.00-0.02); Immature Granulocytes % (auto) 0.2 %; Lymphocytes # (auto) 0.83 K/uL (1.2-3.4); Lymphocytes % (auto) 8.4 %; Mean Corpuscular Hemoglobin 29.6 pg (25-34); Mean Corpuscular Hgb Conc 33.4 g/dL (32-36); Mean Corpuscular Volume 88.7 fL (80-100); Mean Platelet Volume 9.6 fL (7.4-10.4); Monocytes # (auto) 0.09 K/uL (0.11-0.59); Monocytes % (auto) 0.9 %; Neutrophils # (auto) 8.99 K/uL (1.4-6.5); Neutrophils % (auto) 90.4 %; Platelet Count 346 K/uL (130-400); RDW Coefficient of Variation 13.8 % (11.5-14.5); RDW Standard Deviation 44.8 fL (36.4-46.3); Red Blood Count 3.88 M/uL (4.2-5.4); White Blood Count 9.94 K/uL (4.8-10.8)
[2020-04-02 07:36] LABS: BUN Creatinine Ratio 22.2 (10-20); Calcium 8.3 mg/dl (8.5-10.1); Creatinine Clr Calc Pharmacy 57.5 ml/min; Est GFR (African American) 74.4; Est GFR (Non-African American) 64.2; Potassium 3.8 mmol/L (3.5-5.1)
[2020-04-02] MEDS: VITAMIN B COMPLEX TAB PO SCH (07:41)
[2020-04-02] MEDS: LORATADINE 10 MG TAB PO SCH (07:41)
[2020-04-02] MEDS: LEVOTHYROXINE SODIUM 112 MCG TABLET PO SCH (07:41)
[2020-04-02] MEDS: lisinopril 2.5 MG TAB PO SCH (07:41)
[2020-04-02 07:44] LABS: Troponin I 0.974 ng/ml (0-0.045)
--- NOTE | 2020-04-02 08:12 | CT Scan Report ---
CT ANGIOGRAM OF THE CHEST CLINICAL HISTORY: Shortness of breath. Elevated d-dimer. Possible acute pulmonary embolism. COMPARISON STUDY: Chest x-ray dated 04/01/2020 TECHNIQUE: Following the IV administration of 117 mL of Optiray-320, CT angiogram of the thorax was p erformed from the thoracic inlet to the lung bases utilizing the pulmonary embolus protocol. Images a re reviewed in the axial, sagittal, and coronal planes. IV contrast was administered without complica tion. MIP imaging was performed. A dose lowering technique was utilized adhering to the principles o f ALARA. CT DOSE: 279.07 mGy.cm FINDINGS: No pathologically enlarged axillary mediastinal or hilar lymph nodes were visualized. There was no evidence of thoracic aortic dilatation. There were no pulmonary artery filling defects to indicate acute pulmonary embolism. No pleural effusions are visualized. There is mild lower lung zone septal edema. There are multifocal groundglass pulmonary opacities. Lik supriya diagnostic considerations include pulmonary edema, or a multifocal pneumonia possibly viral. There is acute/subacute left fourth rib fracture. There is a healing left anterior third rib fracture . IMPRESSION: 1. Lower lobe septal edema and multifocal bilateral groundglass pulmonary opacities. Likely diagnosti c considerations include pulmonary edema versus a multifocal pneumonia possibly viral. Clinical and r adiographic follow-up recommended. 2. Healing left anterior third rib fracture, an acute/subacute left anterior fourth rib fracture. ACT 112: Negative or not required by law. Electronically signed by: Lb Rosario M.D. 04/02/2020 8:11 AM
--- NOTE | 2020-04-02 08:44 | XRay Report ---
XR chest 1V portable CLINICAL HISTORY: Dyspnea COMPARISON STUDY: 09/25/2019 FINDINGS: There is mild elevation of interstitium. There are subtle bilateral airspace opacities most pronounced in the right upper lobe. Diagnostic considerations include a multifocal pneumonia versus pulmonary edema.[There were no significant pleural effusions IMPRESSION: 1. Bilateral airspace opacities. Pulmonary edema versus a multifocal pneumonia, possibly viral. Clini kristal and radiographic follow-up are recommended. ACT 112: Negative or not required by law. Electronically signed by: Lb Rosario M.D. 04/02/2020 8:42 AM
--- NOTE | 2020-04-02 08:47 | Hospitalist Progress Note ---
Date of Service April 02, 2020 Assessment & Plan (1) Acute CHF: CHF Secondary to NSTEMI ? Tachycardia induced cardiomyopathy (hx palpitations the last 4 months, episodic tachyarrhythmia on outpatient Zio patch) hypertension, stable hypothyroidism, euthyroid as of today's TSH prediabetes, hemoglobin A1c of 5.18 December 2019 past tobacco use PCU Continue aspirin, IV heparin for ACS Initiate beta-teresita for ACS and new onset CHF Trend troponin Check lipid profile TTE, Cardiology consult RE ACS, CHF - plan for cardiac angiography on Wednesday 04/04 Strict I/Os, daily weights, CHF education Received IV lasix in ED and this AM (04/02), pt reports improvement in symptoms DVT prophylaxis. IV heparin Full code Admission and Anticipated Discharge Date Admission Date: April 02, 2020 Subjective Pt is sitting up in bed in NAD. Reports she feels much better now and currently denies any chest pain but reports some chest tightness, again much improved since she came to hospital. No shortness of breath and she speaks in full sentences. Pt is on IV heparin, received IV lasix in ED and by cardiology earlier this AM. Pt reports cardiology just saw her and plan for cath on Saturday, she is in agreement and full understanding of the plan. Denies any fever, chills, sick contacts. Review of Systems Review of Systems: All systems reviewed & are unremarkable except as noted in HPI & below Constitutional: no fever and no chills Respiratory: no cough and no dyspnea Cardiovascular: + chest pain (tightness much improved) Gastrointestinal: no abdominal pain, no nausea and no vomiting Physical Exam Physical Exam: GENERAL: Comfortable, pleasant, no respiratory distress, breathing comfortably on RA HEENT: NC/AT, Bespectacled, pink palpebral conjunctivae, no ptosis, moist buccal mucosa NECK : Supple, no tenderness CHEST : Decreased breath sounds, + mild bibasilar crackles, no wheezing HEART : RRR, no obvious murmurs ABDOMEN: Soft, nontender EXTREMITIES : No LE swelling/tenderness, moves extremities spontaneously and w/o difficulty SKIN: Normal color, warm NEUROLOGIC : alert and oriented x3, no facial asymmetry, speech fluent, moves extremities spontaneously and w/o difficulty Results & Data Results & Data ([facility]) Vital Signs (Past 12 Hours) Vital Signs Temp Pulse Pulse Resp BP BP Pulse Ox 11/21/20 08:20 77 04/02/20 08:06 36.6 C 82 17 136/82 96 04/02/20 08:00 04/02/20 05:04 36.5 C 74 18 109/69 97 04/02/20 04:15 81 19 93 04/02/20 04:00 73 14 108/70 100 04/02/20 03:56 73 20 99 04/02/20 03:45 73 20 99 04/02/20 03:30 70 17 122/85 99 04/02/20 03:15 79 19 98 04/02/20 03:00 84 24 136/87 99 04/02/20 02:45 91 H 16 99 04/02/20 02:30 81 19 124/89 98 04/02/20 02:15 103 H 12 99 04/02/20 02:00 89 21 135/92 99 04/02/20 01:45 96 H 19 142/89 H 97 04/02/20 01:30 92 H 17 136/93 98 04/02/20 01:20 95 H 23 137/98 98 04/02/20 01:19 95 H 21 97 04/02/20 00:30 94 H 30 H 150/97 H 100 04/02/20 00:16 94 H 31 H 137/93 100 04/02/20 00:04 95 H 24 99 04/02/20 00:00 86 30 H 138/95 99 04/01/20 23:59 88 28 H 160/113 H 93 04/01/20 23:45 86 28 H 147/102 H 98 04/01/20 23:43 90 28 H 150/100 H 98 04/01/20 22:42 36.6 C 102 H 18 184/109 H 95 Pulse Ox 04/02/20 08:20 04/02/20 08:06 04/02/20 08:00 96 04/02/20 05:04 04/02/20 04:15 04/02/20 04:00 04/02/20 03:56 04/02/20 03:45 04/02/20 03:30 04/02/20 03:15 04/02/20 03:00 04/02/20 02:45 04/02/20 02:30 04/02/20 02:15 04/02/20 02:00 04/02/20 01:45 04/02/20 01:30 04/02/20 01:20 04/02/20 01:19 04/02/20 00:30 04/02/20 00:16 04/02/20 00:04 04/02/20 00:00 04/01/20 23:59 04/01/20 23:45 04/01/20 23:43 04/01/20 22:42 Laboratory Results 04/02/20 04/02/20 04/02/20 Range/Units 06:26 06:25 06:25 WBC 9.94 (4.8-10.8) K/uL RBC 3.88 L (4.2-5.4) M/uL Hgb 11.5 L (12.0-16.0) g/dL Hct 34.4 L (37-47) % MCV 88.7 (80-100) fL MCH 29.6 (25-34) pg MCHC 33.4 (32-36) g/dL RDW Std Deviation 44.8 (36.4-46.3) fL RDW Coeff of Jayson 13.8 (11.5-14.5) % Plt Count 346 (130-400) K/uL MPV 9.6 (7.4-10.4) fL Immature Gran % (Auto) 0.2 % Neut % (Auto) 90.4 % Lymph % (Auto) 8.4 % Upson % (Auto) 0.9 % Eos % (Auto) 0.0 % Baso % (Auto) 0.1 % Neut # (Auto) 8.99 H (1.4-6.5) K/uL Lymph # (Auto) 0.83 L (1.2-3.4) K/uL Upson # (Auto) 0.09 L (0.11-0.59) K/uL Eos # (Auto) 0.00 (0-0.5) K/uL Baso # (Auto) 0.01 (0-0.2) K/uL Immature Gran # (Auto) 0.02 (0.00-0.02) K/uL PT (9.0-12.0) Seconds INR (0.9-1.1) APTT Pending (21.0-31.0) Seconds PTT Ratio Pending D-Dimer (0-500) ug/L FEU Sodium 138 (136-145) mmol/L Potassium 3.8 (3.5-5.1) mmol/L Chloride 107 (98-107) mmol/L Carbon Dioxide 23 (21-32) mmol/L Anion Gap 8.0 (3-11) BUN 21 H (7-18) mg/dl Creatinine 0.95 (0.6-1.2) mg/dl Est Cr Clr Drug Dosing 57.5 ml/min Est GFR ( Amer) 74.4 Est GFR (Non-Af Amer) 64.2 BUN/Creatinine Ratio 22.2 H (10-20) Glucose 170 H (70-99) mg/dl Lactate (0.4-2.0) mmol/L Calcium 8.3 L (8.5-10.1) mg/dl Magnesium (1.8-2.4) mg/dl Total Bilirubin (0.2-1) mg/dl AST (15-37) U/L ALT (12-78) U/L Alkaline Phosphatase (45-117) U/L Troponin I 0.974 H* (0-0.045) ng/ml NT-Pro-B Natriuret Pep (0-900) pg/ml Total Protein (6.4-8.2) gm/dl Albumin (3.4-5.0) gm/dl Globulin (2.5-4.0) gm/dl Albumin/Globulin Ratio (0.9-2) Triglycerides 46 (0-150) mg/dl Cholesterol 205 H (0-200) mg/dl LDL Cholesterol, Calc 103 mg/dl VLDL Cholesterol, Calc 9 mg/dl HDL Cholesterol 93 mg/dl Cholesterol/HDL Ratio 2 TSH (0.300-4.500) uIu/ml Urine Color Urine Appearance (Clear) Urine pH (4.5-7.5) Ur Specific [place] (1.000-1.030) Urine Protein (Negative) Urine Glucose (UA) (Negative) Urine Ketones (Negative) Urine Blood (Negative) Urine Nitrite (Negative) Urine Bilirubin (Negative) Urine Urobilinogen (Negative) Ur Leukocyte Esterase (Negative) COVID-19 Eval Order COVID-19 PCR (Negative) Hepatitis C Ab Screen Influenza Type A (PCR) (Neg) Influenza Type B (PCR) (Neg) RSV (RT-PCR) (Neg) 04/02/20 04/02/20 04/01/20 Range/Units 06:25 00:17 23:45 WBC (4.8-10.8) K/uL RBC (4.2-5.4) M/uL Hgb (12.0-16.0) g/dL Hct (37-47) % MCV (80-100) fL MCH (25-34) pg MCHC (32-36) g/dL RDW Std Deviation (36.4-46.3) fL RDW Coeff of Jayson (11.5-14.5) % Plt Count (130-400) K/uL MPV (7.4-10.4) fL Immature Gran % (Auto) % Neut % (Auto) % Lymph % (Auto) % Upson % (Auto) % Eos % (Auto) % Baso % (Auto) % Neut # (Auto) (1.4-6.5) K/uL Lymph # (Auto) (1.2-3.4) K/uL Upson # (Auto) (0.11-0.59) K/uL Eos # (Auto) (0-0.5) K/uL Baso # (Auto) (0-0.2) K/uL Immature Gran # (Auto) (0.00-0.02) K/uL PT (9.0-12.0) Seconds INR (0.9-1.1) APTT (21.0-31.0) Seconds PTT Ratio D-Dimer (0-500) ug/L FEU Sodium (136-145) mmol/L Potassium (3.5-5.1) mmol/L Chloride (98-107) mmol/L Carbon Dioxide (21-32) mmol/L Anion Gap (3-11) BUN (7-18) mg/dl Creatinine (0.6-1.2) mg/dl Est Cr Clr Drug Dosing ml/min Est GFR ( Amer) Est GFR (Non-Af Amer) BUN/Creatinine Ratio (10-20) Glucose (70-99) mg/dl Lactate 0.9 (0.4-2.0) mmol/L Calcium (8.5-10.1) mg/dl Magnesium (1.8-2.4) mg/dl Total Bilirubin (0.2-1) mg/dl AST (15-37) U/L ALT (12-78) U/L Alkaline Phosphatase (45-117) U/L Troponin I (0-0.045) ng/ml NT-Pro-B Natriuret Pep (0-900) pg/ml Total Protein (6.4-8.2) gm/dl Albumin (3.4-5.0) gm/dl Globulin (2.5-4.0) gm/dl Albumin/Globulin Ratio (0.9-2) Triglycerides (0-150) mg/dl Cholesterol (0-200) mg/dl LDL Cholesterol, Calc mg/dl VLDL Cholesterol, Calc mg/dl HDL Cholesterol mg/dl Cholesterol/HDL Ratio TSH (0.300-4.500) uIu/ml Urine Color Yellow Urine Appearance Clear (Clear) Urine pH 5.0 (4.5-7.5) Ur Specific [place] 1.013 (1.000-1.030) Urine Protein Negative (Negative) Urine Glucose (UA) Negative (Negative) Urine Ketones Trace H (Negative) Urine Blood Negative (Negative) Urine Nitrite Negative (Negative) Urine Bilirubin Negative (Negative) Urine Urobilinogen Negative (Negative) Ur Leukocyte Esterase Negative (Negative) COVID-19 Eval Order COVID-19 PCR (Negative) Hepatitis C Ab Screen Pending Influenza Type A (PCR) (Neg) Influenza Type B (PCR) (Neg) RSV (RT-PCR) (Neg) 04/01/20 04/01/20 04/01/20 Range/Units 23:03 23:03 23:03 WBC (4.8-10.8) K/uL RBC (4.2-5.4) M/uL Hgb (12.0-16.0) g/dL Hct (37-47) % MCV (80-100) fL MCH (25-34) pg MCHC (32-36) g/dL RDW Std Deviation (36.4-46.3) fL RDW Coeff of Jayson (11.5-14.5) % Plt Count (130-400) K/uL MPV (7.4-10.4) fL Immature Gran % (Auto) % Neut % (Auto) % Lymph % (Auto) % Upson % (Auto) % Eos % (Auto) % Baso % (Auto) % Neut # (Auto) (1.4-6.5) K/uL Lymph # (Auto) (1.2-3.4) K/uL Upson # (Auto) (0.11-0.59) K/uL Eos # (Auto) (0-0.5) K/uL Baso # (Auto) (0-0.2) K/uL Immature Gran # (Auto) (0.00-0.02) K/uL PT (9.0-12.0) Seconds INR (0.9-1.1) APTT (21.0-31.0) Seconds PTT Ratio D-Dimer (0-500) ug/L FEU Sodium 138 (136-145) mmol/L Potassium 3.7 (3.5-5.1) mmol/L Chloride 106 (98-107) mmol/L Carbon Dioxide 26 (21-32) mmol/L Anion Gap 6.0 (3-11) BUN 22 H (7-18) mg/dl Creatinine 0.84 (0.6-1.2) mg/dl Est Cr Clr Drug Dosing 70.4 ml/min Est GFR ( Amer) 86.3 Est GFR (Non-Af Amer) 74.5 BUN/Creatinine Ratio 25.6 H (10-20) Glucose 110 H (70-99) mg/dl Lactate (0.4-2.0) mmol/L Calcium 8.8 (8.5-10.1) mg/dl Magnesium 2.1 (1.8-2.4) mg/dl Total Bilirubin 0.4 (0.2-1) mg/dl AST 21 (15-37) U/L ALT 20 (12-78) U/L Alkaline Phosphatase 67 (45-117) U/L Troponin I 0.702 H* (0-0.045) ng/ml NT-Pro-B Natriuret Pep 343 (0-900) pg/ml Total Protein 7.7 (6.4-8.2) gm/dl Albumin 3.8 (3.4-5.0) gm/dl Globulin 3.9 (2.5-4.0) gm/dl Albumin/Globulin Ratio 1.0 (0.9-2) Triglycerides (0-150) mg/dl Cholesterol (0-200) mg/dl LDL Cholesterol, Calc mg/dl VLDL Cholesterol, Calc mg/dl HDL Cholesterol mg/dl Cholesterol/HDL Ratio TSH 4.000 (0.300-4.500) uIu/ml Urine Color Urine Appearance (Clear) Urine pH (4.5-7.5) Ur Specific [place] (1.000-1.030) Urine Protein (Negative) Urine Glucose (UA) (Negative) Urine Ketones (Negative) Urine Blood (Negative) Urine Nitrite (Negative) Urine Bilirubin (Negative) Urine Urobilinogen (Negative) Ur Leukocyte Esterase (Negative) COVID-19 Eval Order [facility]Rsv at [facility] COVID-19 PCR NEGATIVE (Negative) Hepatitis C Ab Screen Influenza Type A (PCR) Negative (Neg) Influenza Type B (PCR) Negative (Neg) RSV (RT-PCR) Negative (Neg) 04/01/20 04/01/20 Range/Units 23:03 23:03 WBC 9.90 (4.8-10.8) K/uL RBC 4.25 (4.2-5.4) M/uL Hgb 12.5 (12.0-16.0) g/dL Hct 38.3 (37-47) % MCV 90.1 (80-100) fL MCH 29.4 (25-34) pg MCHC 32.6 (32-36) g/dL RDW Std Deviation 45.1 (36.4-46.3) fL RDW Coeff of Jayson 13.7 (11.5-14.5) % Plt Count 428 H (130-400) K/uL MPV 9.7 (7.4-10.4) fL Immature Gran % (Auto) 0.2 % Neut % (Auto) 68.9 % Lymph % (Auto) 22.5 % Upson % (Auto) 6.8 % Eos % (Auto) 1.3 % Baso % (Auto) 0.3 % Neut # (Auto) 6.82 H (1.4-6.5) K/uL Lymph # (Auto) 2.23 (1.2-3.4) K/uL Upson # (Auto) 0.67 H (0.11-0.59) K/uL Eos # (Auto) 0.13 (0-0.5) K/uL Baso # (Auto) 0.03 (0-0.2) K/uL Immature Gran # (Auto) 0.02 (0.00-0.02) K/uL PT 10.3 (9.0-12.0) Seconds INR 1.0 (0.9-1.1) APTT 27.2 (21.0-31.0) Seconds PTT Ratio 1.0 D-Dimer 1020 H* (0-500) ug/L FEU Sodium (136-145) mmol/L Potassium (3.5-5.1) mmol/L Chloride (98-107) mmol/L Carbon Dioxide (21-32) mmol/L Anion Gap (3-11) BUN (7-18) mg/dl Creatinine (0.6-1.2) mg/dl Est Cr Clr Drug Dosing ml/min Est GFR ( Amer) Est GFR (Non-Af Amer) BUN/Creatinine Ratio (10-20) Glucose (70-99) mg/dl Lactate (0.4-2.0) mmol/L Calcium (8.5-10.1) mg/dl Magnesium (1.8-2.4) mg/dl Total Bilirubin (0.2-1) mg/dl AST (15-37) U/L ALT (12-78) U/L Alkaline Phosphatase (45-117) U/L Troponin I (0-0.045) ng/ml NT-Pro-B Natriuret Pep (0-900) pg/ml Total Protein (6.4-8.2) gm/dl Albumin (3.4-5.0) gm/dl Globulin (2.5-4.0) gm/dl Albumin/Globulin Ratio (0.9-2) Triglycerides (0-150) mg/dl Cholesterol (0-200) mg/dl LDL Cholesterol, Calc mg/dl VLDL Cholesterol, Calc mg/dl HDL Cholesterol mg/dl Cholesterol/HDL Ratio TSH (0.300-4.500) uIu/ml Urine Color Urine Appearance (Clear) Urine pH (4.5-7.5) Ur Specific [place] (1.000-1.030) Urine Protein (Negative) Urine Glucose (UA) (Negative) Urine Ketones (Negative) Urine Blood (Negative) Urine Nitrite (Negative) Urine Bilirubin (Negative) Urine Urobilinogen (Negative) Ur Leukocyte Esterase (Negative) COVID-19 Eval Order COVID-19 PCR (Negative) Hepatitis C Ab Screen Influenza Type A (PCR) (Neg) Influenza Type B (PCR) (Neg) RSV (RT-PCR) (Neg) Medications Administered Current Inpatient Medications Acetaminophen (Acetaminophen 325 Mg Tab) 650 mg PO Q4H PRN PRN Reason: Pain or Fever Stop: 05/02/20 05:56 Aspirin (Aspirin 81 Mg Ectab) [facility] [place] Stop: 05/03/20 08:59 Heparin Sodium/Dextrose (Heparin Sodium/Dextrose) 25,000 units in 500 mls @ 23 mls/hr IV .[id number] [facility]; Protocol Stop: 05/02/20 01:59 Last Titration: 04/02/20 07:10 Dose: 1,150 units/hr, 23 mls/hr Documented by: Promethazine HCl 6.25 mg/ (Sodium Chloride) 50.25 mls @ 201 mls/hr IV Q6H PRN PRN Reason: Nausea And Vomiting Stop: 05/02/20 05:56 Lorazepam (Ativan) 0.25 mg in 0.5 mls @ 0.5 mls/min IV Q4H PRN PRN Reason: Anxiety Stop: 05/02/20 05:56 Levothyroxine Sodium (Levothyroxine Sodium 112 Mcg Tablet) [facility] Stop: 05/02/20 06:29 Last Admin: 04/02/20 07:41 Dose: 112 mcg Documented by: Lisinopril (Lisinopril 2.5 Mg Tab) [facility] Stop: 05/02/20 06:29 Last Admin: 04/02/20 07:41 Dose: 2.5 mg Documented by: Loratadine (Loratadine 10 Mg Tab) [facility] Stop: 05/02/20 06:29 Last Admin: 04/02/20 07:41 Dose: 10 mg Documented by: Morphine Sulfate (Morphine Sulfate 2 Mg/Ml Carp) 2 mg IV Q3H PRN PRN Reason: Pain Stop: 04/16/20 05:56 Nitroglycerin (Nitroglycerin Sl 0.4 Mg/Tab Tab) 0.4 mg SL UD PRN PRN Reason: Chest Pain Stop: 05/02/20 05:56 Tramadol HCl (Tramadol Hcl 50 Mg Tablet) 25 - 50 mg PO Q4H PRN PRN Reason: Pain Stop: 05/02/20 05:56 Vitamin B Complex (Vitamin B Complex Tab) 1 tab PO DAILYBB THADDEUS Stop: 05/02/20 06:29 Last Admin: 04/02/20 07:41 Dose: 1 tab Documented by:
[2020-04-02 09:00] LABS: Partial Thromboplastin Ratio 2.9
[2020-04-02 09:04] LABS: Partial Thromboplastin Time 81.5 Seconds (21.0-31.0)
[2020-04-02] MEDS ORDERED: FUROSEMIDE 40 MG in SYRINGE 0 ML IV ONE (11:30)
[2020-04-02] MEDS ORDERED: FUROSEMIDE 40 MG/4 ML VIAL IV ONE (12:20)
[2020-04-02] MEDS: METOPROLOL TARTRATE 25 MG TAB PO SCH ×2 (12:24→20:18)
[2020-04-02] MEDS: ATORVASTATIN 20 MG TAB PO SCH (12:25)
[2020-04-02] MEDS ORDERED: POTASSIUM CHLORIDE CRTAB 20 MEQ TABCR PO STA (12:25)
--- NOTE | 2020-04-02 12:26 | Cardiology Consultation ---
Date of Consultation April 02, 2020 Assessment & Plan (1) Acute CHF: (2) NSTEMI (non-ST elevated myocardial infarction): Last evening at approximately 7:30 PM, she was engaging in intercourse with her boyfriend, and had sudden onset of cough with production of frothy sputum, shortness of breath, and left-sided chest tightness that radiated in a band across the top of her chest. Her symptoms persisted. She presented to the emergency department where a COVID-19 test was negative, and a CT angiogram revealed suggestion of atypical pneumonia versus congestive heart failure, no pulmonary embolism, and an acute/subacute left anterior fourth rib fracture. Rib fracture is explained by her recent fall with chest trauma about 3 weeks ago. Troponin levels performed x2 thus far have been mildly elevated at 0.702 and 0.974 NG per mL. Initial EKG performed at 2309 last evening revealed sinus rhythm at [address] segments. Repeat EKG this morning reveals interval development of T wave inversions in leads III and aVF with subtle Q waves noted consistent with injury, ischemia, without ST elevation. An echocardiogram was performed this morning and reviewed independently by the undersigned with findings of regional wall motion abnormalities affecting the septum and inferior garcia, and mild left ventricular systolic dysfunction, LVEF 40 to 45%. No prior echocardiogram available for comparison. I believe that the patient's presentation is consistent with a non-ST segment elevation acute coronary syndrome with superimposed congestive heart failure. Therapeutics: Continue aspirin, UF heparin infusion, and will order an additional dose of furosemide 40 mg IV x1 now. Add metoprolol tartrate 12.5 mg twice daily, atorvastatin. Her most recent cholesterol on file as an outpatient dates back to June 2018, with total cholesterol 222, LDL cholesterol 118 at that time. Recommend ongoing hospitalization on telemetry. There is no indication for emergent cardiac catheterization at this time, as she is not having chest discomfort or ST segment elevation at present. Recommend ongoing optimization of a CHF standpoint, I will plan on coronary angiography likely on Saturday. Patient agreeable to this plan. Will advance her diet for now. (3) Contrast media allergy: She has a history of contrast allergy with rash at the injection site noted, this is in her outpatient record January,. She received pretreatment with methylprednisolone, diphenhydramine, and famotidine last evening prior to CT. She tolerated the contrast well. We will likely need pretreatment again before coronary angiography. We will plan to start prednisone tomorrow. History of Present Illness Attending Physician: Harvinder Carroll MD History of Present Illness Shala Curtis is a 64-year-old female seen in cardiology consultation per the request of Dr. Martínez due to concerns of congestive heart failure and acute coronary syndrome. This is her first cardiology assessment. She has a history of mild hypertension for which she is on lisinopril, and hypothyroidism. In December,, she had morning outpatient [employer] community health nursing director for symptom of palpitations and transient "chest tightness "the revealed brief nonsustained episodes of SVT without significant arrhythmia otherwise. Patient symptom markers for the most part correlated with PVCs, however the overall PVC burden was low. She describes that 3 weeks ago she moved, with the assistance of her son, she carried a heavy elliptical exercise machine up some stairs, she fell injured her left side, and felt like she may have broken some ribs. She has been taking ibuprofen for this in the meantime and states that her physical activity had s vicky been limited. Last evening at approximately 7:30 PM, she was engaging in intercourse with her boyfriend, and had sudden onset of cough with production of frothy sputum, shortness of breath, and left-sided chest tightness that radiated in a band across the top of her chest. Her symptoms persisted. She presented to the emergency department where a COVID-19 test was negative, and a CT angiogram revealed suggestion of atypical pneumonia versus congestive heart failure, no pulmonary embolism, and an acute/subacute left anterior fourth rib fracture. Troponin levels performed x2 thus far have been mildly elevated at 0.702 and 0.974 NG per mL. Initial EKG performed at 2309 last evening revealed sinus rhythm at [address] segments. Repeat EKG this morning reveals interval development of T wave inversions in leads III and aVF with subtle Q waves noted consistent with injury, ischemia, without ST elevation. At present, she still feels some residual shortness of breath, but no chest tightness having received 20 mg of IV furosemide last evening. She is on unfractionated heparin infusion and is tolerating this well. 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 [employer] Family History: No family history of coronary heart disease Allergies Allergy/AdvReac Type Severity Reaction Status Date / Time latex Allergy Intermediate RASH, SKIN Verified 04/02/20 00:01 IRRITATION nickel Allergy Intermediate RASH, SKIN Verified 04/02/20 00:01 IRRITATION Iodinated Contrast Media Allergy Unknown Hives Verified 04/02/20 06:28 Home Medications Medication Instructions Recorded Confirmed Type levothyroxine [Synthroid] 112 mcg PO DAILYBB 09/25/19 04/02/20 History lisinopril [Zestril] 2.5 mg PO DAILYBB 09/25/19 04/02/20 History loratadine [Claritin] 10 mg PO DAILYBB 09/25/19 04/02/20 History rizatriptan [Maxalt] 10 mg PO Q2H PRN MDD 30 mg 09/25/19 04/02/20 History triamcinolone acetonide [Triderm] 1 applic TOPICAL BID PRN 09/25/19 04/02/20 History vitamin B complex 1 cap PO DAILYBB 09/25/19 04/02/20 History Patient History Medical History HTN (hypertension) Hypothyroid Migraine Social History Smoking Status: Former smoker Hx Alcohol Use: Yes Alcohol type: hard liquor Hx Substance Use: No Preferred Language: Tristanian Communication Ability: Effective Beliefs That Will Affect Care: None Current Living Situation: Family Other Information That Helps Us Care for You: No Feels Safe at Home: Yes Safety Concerns: Feels Safe At This Time Assistive Devices: Glasses Physical Exam Physical Exam: Temp Pulse Resp BP Pulse Ox 36.8 C 89 18 145/85 H 97 04/02/20 11:49 04/02/20 11:49 04/02/20 11:49 04/02/20 11:49 04/02/20 11:49 Constitutional: WD/WN, vitals as above Respiratory: Auscultation: + crackles (Mild crackles at the bases bilaterally, no rhonchi, no wheezing) Cardiovascular: RRR, no murmur, no edema Gastrointestinal (Abdomen): normal bowel sounds, soft, nontender, no hepatosplenomegaly Skin: no rashes, warm and dry Neurologic: PERRL, EOMI, accommodation nl, no face palsy, no dysarthria Results & Data ([facility]) Vital Signs (Past 12 Hours) Vital Signs Temp Pulse Pulse Resp BP BP Pulse Ox 04/02/20 11:49 36.8 C 89 18 145/85 H 97 04/02/20 08:20 77 04/02/20 08:06 36.6 C 82 17 136/82 96 04/02/20 08:00 04/02/20 05:04 36.5 C 74 18 109/69 97 04/02/20 04:15 81 19 93 04/02/20 04:00 73 14 108/70 100 04/02/20 03:56 73 20 99 04/02/20 03:45 73 20 99 04/02/20 03:30 70 17 122/85 99 04/02/20 03:15 79 19 98 04/02/20 03:00 84 24 136/87 99 04/02/20 02:45 91 H 16 99 04/02/20 02:30 81 19 124/89 98 04/02/20 02:15 103 H 12 99 04/02/20 02:00 89 21 135/92 99 04/02/20 01:45 96 H 19 142/89 H 97 04/02/20 01:30 92 H 17 136/93 98 04/02/20 01:20 95 H 23 137/98 98 04/02/20 01:19 95 H 21 97 04/02/20 00:30 94 H 30 H 150/97 H 100 04/02/20 00:16 94 H 31 H 137/93 100 Pulse Ox 04/02/20 11:49 04/02/20 08:20 04/02/20 08:06 04/02/20 08:00 96 04/02/20 05:04 04/02/20 04:15 04/02/20 04:00 04/02/20 03:56 04/02/20 03:45 04/02/20 03:30 04/02/20 03:15 04/02/20 03:00 04/02/20 02:45 04/02/20 02:30 04/02/20 02:15 04/02/20 02:00 04/02/20 01:45 04/02/20 01:30 04/02/20 01:20 04/02/20 01:19 04/02/20 00:30 04/02/20 00:16 Laboratory Results Cardiac Enzymes 04/01/20 04/02/20 Range/Units 23:03 06:25 AST 21 (15-37) U/L Troponin I 0.702 H* 0.974 H* (0-0.045) ng/ml Coagulation 04/01/20 04/02/20 Range/Units 23:03 06:26 PT 10.3 (9.0-12.0) Seconds APTT 27.2 81.5 H* (21.0-31.0) Seconds Lipids 04/02/20 Range/Units 06:25 Triglycerides 46 (0-150) mg/dl Cholesterol 205 H (0-200) mg/dl HDL Cholesterol 93 mg/dl Cholesterol/HDL Ratio 2 CBC 04/01/20 04/02/20 Range/Units 23:03 06:25 WBC 9.90 9.94 (4.8-10.8) K/uL RBC 4.25 3.88 L (4.2-5.4) M/uL Hgb 12.5 11.5 L (12.0-16.0) g/dL Hct 38.3 34.4 L (37-47) % Plt Count 428 H 346 (130-400) K/uL Neut # (Auto) 6.82 H 8.99 H (1.4-6.5) K/uL Lymph # (Auto) 2.23 0.83 L (1.2-3.4) K/uL Becker # (Auto) 0.67 H 0.09 L (0.11-0.59) K/uL Eos # (Auto) 0.13 0.00 (0-0.5) K/uL Baso # (Auto) 0.03 0.01 (0-0.2) K/uL Comprehensive Metabolic Panel 04/01/20 04/02/20 Range/Units 23:03 06:25 Sodium 138 138 (136-145) mmol/L Potassium 3.7 3.8 (3.5-5.1) mmol/L Chloride 106 107 (98-107) mmol/L Carbon Dioxide 26 23 (21-32) mmol/L BUN 22 H 21 H (7-18) mg/dl Creatinine 0.84 0.95 (0.6-1.2) mg/dl Glucose 110 H 170 H (70-99) mg/dl Calcium 8.8 8.3 L (8.5-10.1) mg/dl AST 21 (15-37) U/L ALT 20 (12-78) U/L Alkaline Phosphatase 67 (45-117) U/L Total Protein 7.7 (6.4-8.2) gm/dl Albumin 3.8 (3.4-5.0) gm/dl Intake and Output 04/01/20 04/02/20 04/02/20 22:59 06:59 14:59 Intake Total 157.934 / 157.934 Balance 157.934 / 157.934 Intake: IV 157.934 / 157.934 HEPARIN SODIUM/DEXTROSE 25,000 157.934 / 157.934 units In 500 ml @ 1,150 UNITS/ HR 23 mls/hr IV .[id number] [facility] Rx #:[id number] Other: Other Intake Source NPO Sips # Unmeasured Voids 1 Weight 71.5 kg 69.5 kg Weight Measurement Method Standing Scale
[2020-04-02 15:09] LABS: Partial Thromboplastin Ratio 2.3
[2020-04-02 15:10] LABS: Partial Thromboplastin Time 65.2 Seconds (21.0-31.0)
[2020-04-03] MEDS: LORATADINE 10 MG TAB PO SCH (05:42)
[2020-04-03] MEDS: LEVOTHYROXINE SODIUM 112 MCG TABLET PO SCH (05:42)
[2020-04-03] MEDS: VITAMIN B COMPLEX TAB PO SCH (05:43)
[2020-04-03] MEDS: lisinopril 2.5 MG TAB PO SCH (05:43)
--- NOTE | 2020-04-03 06:24 | Electrocardiogram Report ---
Test Reason : Blood Pressure : / mmHG Vent. Rate : 092 BPM Atrial Rate : 092 BPM P-R Int : 152 ms QRS Dur : 078 ms QT Int : 380 ms P-R-T Axes : 057 042 073 degrees QTc Int : 469 ms Normal sinus rhythm Possible Left atrial enlargement Borderline ECG When compared with ECG of 25-SEP-2019 22:21, No significant change was found Confirmed by George Benson ([id number]) on 04/03/2020 6:24:06 AM Referred By: REFERRED SELF Confirmed By:George Benson
--- NOTE | 2020-04-03 06:26 | Electrocardiogram Report ---
Test Reason : Blood Pressure : / mmHG Vent. Rate : 087 BPM Atrial Rate : 087 BPM P-R Int : 152 ms QRS Dur : 086 ms QT Int : 412 ms P-R-T Axes : 015 046 -16 degrees QTc Int : 495 ms Normal sinus rhythm Possible Left atrial enlargement Possible Inferior infarct , age undetermined Prolonged QT Abnormal ECG When compared with ECG of 01-APR-2020 23:09, Borderline criteria for Inferior infarct are now Present T wave inversion now evident in Inferior leads Confirmed by George Benson ([id number]) on 04/03/2020 6:26:11 AM Referred By: REFERRED SELF Confirmed By:George Benson
[2020-04-03 08:06] LABS: Partial Thromboplastin Ratio 2.2
[2020-04-03 08:07] LABS: Partial Thromboplastin Time 62.6 Seconds (21.0-31.0)
--- NOTE | 2020-04-03 08:13 | Hospitalist Progress Note ---
Date of Service April 03, 2020 Assessment & Plan (1) Acute CHF: CHF Secondary to NSTEMI ? Tachycardia induced cardiomyopathy (hx palpitations the last 4 months, episodic tachyarrhythmia on outpatient Zio patch) hypertension, stable hypothyroidism, euthyroid as of today's TSH prediabetes, hemoglobin A1c of 5.18 December 2019 past tobacco use PCU Continue aspirin, IV heparin for ACS Initiated beta-teresita for ACS and new onset CHF troponin trended down Check lipid profile TTE - Large sized septal and inferior wall motion abnormality with hypokinesis of the segments. LV systolic function is mildly reduced. EF 40 to 45%. Diastolic dysfunction, grade 2. R The left atrium is mildly dilated.V is normal in size and function Cardiology consult RE ACS, CHF - plan for cardiac angiography now 04/03, d/t worsening symptoms Strict I/Os, daily weights, CHF education Received IV lasix in ED and (04/02), pt reported improvement in symptoms Had good response to diuresis and felt well yesterday however this AM (04/03) worsening symptoms DVT prophylaxis. IV heparin Full code Admission and Anticipated Discharge Date Admission Date: April 02, 2020 Subjective Pt seen in follow up for chest pain. Reports having good day yesterday and evening but woke up with chest discomfort. Seen by cardiology this AM and decision for cardiac cath made. Currently she is sitting up in bed in NAD. Denies shortness of breath or palpitations, feeling anxious about the procedure. Review of Systems Review of Systems: All systems reviewed & are unremarkable except as noted in HPI & below Constitutional: no fever and no chills Respiratory: + dyspnea (mild); no cough Cardiovascular: + chest pain (now worse than yesterday) Gastrointestinal: no abdominal pain and no vomiting Physical Exam Physical Exam: GENERAL: WD/WN female in no respiratory distress, w/ some di scomfort d/t chest pain HEENT: NC/AT, Bespectacled, pink palpebral conjunctivae, no ptosis, moist buccal mucosa NECK : Supple, no tenderness CHEST : Decreased breath sounds, + mild bibasilar crackles, no wheezing HEART : RRR, no obvious murmurs ABDOMEN: Soft, nontender EXTREMITIES : No LE swelling/tenderness, moves extremities spontaneously and w/o difficulty SKIN: Normal color, warm NEUROLOGIC : alert and oriented x3, no facial asymmetry, speech fluent, moves extremities spontaneously and w/o difficulty Results & Data Results & Data ([facility]) Vital Signs (Past 12 Hours) Vital Signs Temp Pulse Pulse Resp BP BP Pulse Ox 04/03/20 08:10 36.5 C 93 H 19 143/82 H 99 04/03/20 03:21 36.6 C 70 18 128/84 99 04/03/20 00:16 36.4 C L 80 18 116/69 99 04/02/20 22:20 67 04/02/20 20:19 36.5 C 72 18 110/72 98 Medications Administered Current Inpatient Medications Acetaminophen (Acetaminophen 325 Mg Tab) 650 mg PO Q4H PRN PRN Reason: Pain or Fever Stop: 05/02/20 05:56 Aspirin (Aspirin 81 Mg Ectab) [address] [facility] Stop: 05/03/20 08:59 Atorvastatin Calcium (Atorvastatin 20 Mg Tab) [address] [facility] Stop: 05/02/20 11:29 Last Admin: 04/02/20 12:25 Dose: 20 mg Documented by: Heparin Sodium/Dextrose (Heparin Sodium/Dextrose) 25,000 units in 500 mls @ 22 mls/hr IV .[id number] [facility]; Protocol Stop: 05/02/20 01:59 Last Admin: 04/02/20 21:37 Dose: 1,100 units/hr, 22 mls/hr Documented by: Promethazine HCl 6.25 mg/ (Sodium Chloride) 50.25 mls @ 201 mls/hr IV Q6H PRN PRN Reason: Nausea And Vomiting Stop: 05/02/20 05:56 Lorazepam (Ativan) 0.25 mg in 0.5 mls @ 0.5 mls/min IV Q4H PRN PRN Reason: Anxiety Stop: 05/02/20 05:56 Levothyroxine Sodium (Levothyroxine Sodium 112 Mcg Tablet) [facility] Stop: 05/02/20 06:29 Last Admin: 04/03/20 05:42 Dose: 112 mcg Documented by: Lisinopril (Lisinopril 2.5 Mg Tab) 2.5 mg [facility] Stop: 05/02/20 06:29 Last Admin: 04/03/20 05:43 Dose: 2.5 mg Documented by: Loratadine (Loratadine 10 Mg Tab) [facility] Stop: 05/02/20 06:29 Last Admin: 04/03/20 05:42 Dose: 10 mg Documented by: Metoprolol Tartrate (Metoprolol Tartrate 25 Mg Tab) 12.5 mg PO BID [facility] Stop: 05/02/20 11:29 Last Admin: 04/02/20 20:18 Dose: 12.5 mg Documented by: Morphine Sulfate (Morphine Sulfate 2 Mg/Ml Carp) 2 mg IV Q3H PRN PRN Reason: Pain Stop: 04/16/20 05:56 Nitroglycerin (Nitroglycerin Sl 0.4 Mg/Tab Tab) 0.4 mg SL UD PRN PRN Reason: Chest Pain Stop: 05/02/20 05:56 Tramadol HCl (Tramadol Hcl 50 Mg Tablet) 25 - 50 mg PO Q4H PRN PRN Reason: Pain Stop: 05/02/20 05:56 Vitamin B Complex (Vitamin B Complex Tab) 1 tab PO DAILYBB [facility] Stop: 05/02/20 06:29 Last Admin: 04/03/20 05:43 Dose: 1 tab Documented by:
[2020-04-03 08:46] LABS: BUN Creatinine Ratio 26.3 (10-20); Calcium 8.7 mg/dl (8.5-10.1); Creatinine Clr Calc Pharmacy 62.1 ml/min; Est GFR (African American) 81.6; Est GFR (Non-African American) 70.4; Hematocrit (blood only) 36.6 % (37-47); Hemoglobin 12.1 g/dL (12.0-16.0); Mean Corpuscular Hgb Conc 33.1 g/dL (32-36); Mean Corpuscular Volume 90.6 fL (80-100); Mean Platelet Volume 9.8 fL (7.4-10.4); Platelet Count 371 K/uL (130-400); Potassium 3.3 mmol/L (3.5-5.1); RDW Standard Deviation 46.5 fL (36.4-46.3); Red Blood Count 4.04 M/uL (4.2-5.4); White Blood Count 8.34 K/uL (4.8-10.8)
[2020-04-03] MEDS: ASPIRIN 81 MG ECTAB PO SCH (08:49)
[2020-04-03] MEDS: ATORVASTATIN 20 MG TAB PO SCH (08:50)
[2020-04-03] MEDS: METOPROLOL TARTRATE 25 MG TAB PO SCH ×2 (08:50→20:51)
[2020-04-03] MEDS ORDERED: POTASSIUM CHLORIDE CRTAB 20 MEQ TABCR PO STA (08:53)
[2020-04-03 08:57] LABS: Troponin I 0.231 ng/ml (0-0.045)
[2020-04-03] MEDS ORDERED: METOPROLOL TARTRATE 1 MG/ML VIAL IV STA (09:42)
[2020-04-03] MEDS ORDERED: diphenhydrAMINE 50 MG/ML VIAL IV STA (10:04)
[2020-04-03] MEDS ORDERED: methylPREDNISolone 125 MG in SYRINGE 0 ML IV STA (10:07)
[2020-04-03] MEDS ORDERED: FAMOTIDINE 20 MG in SYRINGE 3 ML IV STA (10:08)
--- NOTE | 2020-04-03 10:13 | Cardiology Progress Note ---
Date of Service April 03, 2020 Assessment & Plan (1) ST elevation myocardial infarction (STEMI) of inferior wall: (2) Contrast media allergy: EKG this morning, 7:01 AM revealed sinus rhythm at 65 bpm, with new subtle ST segment elevation in the inferior leads II, per minute with 3, aVF, and deep T wave inversions I and aVL, progressed compared to prior. The time of my bedside evaluation, 4/10 intensity chest discomfort noted, without acute distress. Repeat EKG performed 9:24 AM reveals ongoing subtle inferior ST elevation, once again, new compared to tracing performed yesterday and on admission. Troponin performed this morning is actually trended down to 0.231 as compared to 0.974 yesterday. The patient remains on a heparin infusion. Proceed with 5 mg of IV metoprolol for mild hypertension. Case discussed with Dr. Escamilla of interventional cardiology, we concur that steve gent cardiac catheterization is in the patient's best interest given the evolving EKG changes and symptoms. Based on her echocardiogram yesterday, there is concern for ischemia/injury of the inferior and septal garcia. Patient does have a contrast allergy. She received prophylaxis including IV Solu-Medrol, diphenhydramine, and famotidine prior to her contrast enhanced CT on admission, the same regimen will be administered stat at present reparation for cardiac catheterization. Heart alert protocol initiated. Admission and Anticipated Discharge Date Admission Date: April 02, 2020 Subjective Patient seen in cardiology follow-up. She had a vigorous response to IV furosemide yesterday, with 3.7 L of urine output. She states that she feels worse this morning when she first woke up compared to yesterday and last evening. She describes "moderate "4/10 chest discomfort. She is not in acute distress. Physical Exam Physical Exam: Temp Pulse Resp BP Pulse Ox 36.5 C 64 19 143/82 H 99 04/03/20 08:10 04/03/20 09:50 04/03/20 08:10 04/03/20 09:50 04/03/20 08:10 Constitutional: No acute distress Respiratory: Decreased breath sounds bilaterally at the bases Cardiovascular: RRR, no murmur, no edema Gastrointestinal (Abdomen): normal bowel sounds, soft, nontender, no hepatosplenomegaly Neurologic: PERRL, EOMI, accommodation nl, no face palsy, no dysarthria Results & Data ([facility]) Vital Signs (Past 12 Hours) Vital Signs Temp Pulse Pulse Resp BP BP Pulse Ox 04/03/20 09:50 64 143/82 H 04/03/20 08:10 36.5 C 93 H 19 143/82 H 99 04/03/20 03:21 36.6 C 70 18 128/84 99 04/03/20 00:16 36.4 C L 80 18 116/69 99 04/02/20 22:20 67 Laboratory Results Cardiac Enzymes 04/03/20 Range/Units 07:10 Troponin I 0.231 H* (0-0.045) ng/ml Coagulation 04/02/20 04/03/20 Range/Units 14:40 07:10 APTT 65.2 H* 62.6 H* (21.0-31.0) Seconds CBC 04/03/20 Range/Units 07:10 WBC 8.34 (4.8-10.8) K/uL RBC 4.04 L (4.2-5.4) M/uL Hgb 12.1 (12.0-16.0) g/dL Hct 36.6 L (37-47) % Plt Count 371 (130-400) K/uL Comprehensive Metabolic Panel 04/03/20 Range/Units 07:10 Sodium 139 (136-145) mmol/L Potassium 3.3 L (3.5-5.1) mmol/L Chloride 103 (98-107) mmol/L Carbon Dioxide 32 (21-32) mmol/L BUN 23 H (7-18) mg/dl Creatinine 0.88 (0.6-1.2) mg/dl Glucose 97 (70-99) mg/dl Calcium 8.7 (8.5-10.1) mg/dl Intake and Output 04/02/20 04/03/20 04/03/20 22:59 06:59 14:59 Intake Total 800.366 / 1518.300 200 / 1518.300 Output Total 950 / 3750 400 / 3750 Balance -149.634 / -2231.700 -200 / -2231.700 Intake: IV 275.366 / 433.300 HEPARIN SODIUM/DEXTROSE 25,000 275.366 / 433.300 units In 500 ml @ 1,100 UNITS/ HR 22 mls/hr IV .[id number] [facility] Rx #:[id number] Oral 525 / 1085 200 / 1085 Output: Urine 950 / 3750 400 / 3750 Other: Weight 68.9 kg Weight Measurement Method Standing Scale
[2020-04-03] MEDS ORDERED: fentaNYL citrate 100 MCG/2 ML VIAL ONE (10:24)
[2020-04-03] MEDS ORDERED: HEPARIN (PORCINE) 1000 UNIT/ML 10 ML (CATH LAB USE ONLY) ONE (10:24)
[2020-04-03] MEDS ORDERED: niCARdipine HCL INJ 2.5 MG/ML 10 ML AMP ONE (10:24)
[2020-04-03] MEDS ORDERED: MIDAZOLAM HCL 1 MG/ML 2ML VIAL ONE (10:24)
[2020-04-03] MEDS ORDERED: NITROGLYCERIN/D5W 100MCG/ML 20ML SYR ONE (10:25)
--- NOTE | 2020-04-03 10:52 | Pre Anesthesia Assessment ---
Date of Service April 03, 2020 Pre Sedation Assessment Vital Signs Temp Pulse Pulse Resp BP BP BP 04/03/20 09:50 64 143/82 H 04/03/20 08:10 97.7 F 93 H 19 143/82 H 04/03/20 03:21 97.9 F 70 18 128/84 04/03/20 00:16 97.5 F L 80 18 116/69 04/02/20 22:20 67 04/02/20 20:19 97.7 F 72 18 110/72 04/02/20 18:58 97.9 F 80 19 146/82 H 04/02/20 15:40 97.9 F 74 20 124/81 04/02/20 11:49 98.2 F 89 18 145/85 H Pulse Ox 04/03/20 09:50 04/03/20 08:10 99 04/03/20 03:21 99 04/03/20 00:16 99 04/02/20 22:20 04/02/20 20:19 98 04/02/20 18:58 98 04/02/20 15:40 97 04/02/20 11:49 97 Cardiovascular RRR, no murmur, no edema Respiratory normal respiratory effort, lungs clear to auscultation Pre-Sedation Airway Assessment Smoking Status: Former smoker Hx Sleep Apnea: No Hx Difficult Intubation: No Short, Thick Neck: No Thyromental Distance: < 3.5 Finger Breadths Oral Cavity: + WNL Mallampati Class: III ASA: ASA3 Procedure Planning Contraindications for Sedation: none Current Medications Reviewed: Yes Notes The planned sedation has been discussed with the patient. Informed Consent was obtained. I have identified the patient, determined the appropriateness of sedation and have assessed the patient immediately prior to the procedure. All medicine(s) and interventions are by my order.
--- NOTE | 2020-04-03 11:16 | Post Anesthesia Assessment ---
Date of Service April 03, 2020 Post Sedation Assessment Vital Signs Temp Pulse Pulse Resp BP BP BP 04/03/20 09:50 64 143/82 H 04/03/20 08:10 97.7 F 93 H 19 143/82 H 04/03/20 03:21 97.9 F 70 18 128/84 04/03/20 00:16 97.5 F L 80 18 116/69 04/02/20 22:20 67 04/02/20 20:19 97.7 F 72 18 110/72 04/02/20 18:58 97.9 F 80 19 146/82 H 04/02/20 15:40 97.9 F 74 20 124/81 04/02/20 11:49 98.2 F 89 18 145/85 H Pulse Ox 04/03/20 09:50 04/03/20 08:10 99 04/03/20 03:21 99 04/03/20 00:16 99 04/02/20 22:20 04/02/20 20:19 98 04/02/20 18:58 98 04/02/20 15:40 97 04/02/20 11:49 97 Recovery Score Activity: Moves 4 extremities Respiration: Deep Breath/Cough Circulation: +/-20% PreAnes Value Consciousness: Fully Awake Oxygen Saturation: O2 needed for >90% Discharge Sedation Level of Care: Fast Track Phase II Post Sedation Plan On clinical assessment, the patient appears to have tolerated the sedation without complications. Patient is recovering as anticipated. Patient will continue to be monitored by nursing and may be discharged when sedation discharge criteria are met per below protocol. Upon Completions of procedure up to 15 minutes continue every 5 minute vital signs and the P.A.R. score; then discharge to a Phase I or Fast Track to Phase II per the following guidelines: * Discharge Patient to appropriate Phase II area if PAR is 8 or greater or return to pre- procedure baseline. The post - procedure orders will be as directed. * If PAR score is less than 8 or not return to pre-procedure baseline then patient will follow Phase I monitoring till PAR is reached for Phase II. The Phase I may be done in procedure room or may call to secure a Phase I area. * If naloxone or flumazenil are used for reversal, hold in Phase I for continued monitoring from when last reversal dose was given for a minimum of 60 minutes or longer pending the nurse and/or physician discretion of patient condition before discharge to Phase II. Please call the Sedation Physician to re-evaluate and complete post-note for discharge to Phase II area. Do NOT discharge from procedure sedation or Phase 1 until post- sedation evaluation note is complete by procedure /sedation MD Sedation Discharge Instructions to be given to the patient at discharge to home.
--- NOTE | 2020-04-03 11:21 | Cardiac Catheterization ---
[facility] Data: Box Sealing Machine Feeder Cardiac Status Clinical evaluation leading to the procedure CAD Presenation: Non STEMI Anginal Classification: CCS IV Heart Failure: No Cardiogenic Shock within 24 Hours: No Cardiac Arrest within 24 Hours: No Imaging Studies Past 6 Months: Yes Stress Studies Past 6 Months: No Diagnostic Physicians Name: Jose Alejandro Escamilla MD Status: Urgent Closure Device Percutaneous Entry Location: Radial Closure Device: Radial Band Recommendations: Medical Therapy and/or Counseling Intraprocedure Events Significant Disection: No Perforation: No Cardiac Cath Procedure Full Procedure Date April 03, 2020 Pre-Procedure Diagnosis Pre-Procedure Diagnosis: Non STEMI AUC Score AUC Score: 8 Post-Procedure Diagnosis Post-Procedure Diagnosis: Normal Coronary Arteries and Elevated Intracardiac Pressures Procedure(s) Performed Procedure(s) Performed: Coronary Angiography and Left Heart Cath Ambulatory Care Nurse Jose Alejandro Escamilla MD Accounting Director(s) Geoffrey Estimated Blood Loss Estimated Blood Loss: 5 Medication(s) Medication(s): Fentanyl, Heparin, Lidocaine 1%, Nicardipine, Nitroglycerin and Versed Summary of Findings Indication: NSTEMI, new cardiomyopathy Access: 6 Fr right radial artery Catheters: [place], diagnostic JL 3.5 Findings: LM -Short, almost separate ostium, no significant disease LAD -large caliber, 20% mid segment stenosis with myocardial bridging, distal ve ssel without significant disease and wraps around apex. Circumflex -medium caliber, angiographically normal RCA -dominant, large caliber, angiographically normal LVEDP -31 Arterial Closure: TR band Summary: 1. Angiographically normal coronary arteries 2. Elevated intracardiac filling pressure (LVEDP 31) Recommendations: GDMT and diuresis per Dr. Owen. Hemodynamics Rest Ao:: 144/78/135 Final Ao: 152/82/107 LV: 137/31 Recommendations Recommendations: Medical Therapy and/or Counseling Specimens Specimens: None Radiation Exposure (mGy) 614 Contrast (mls) 40 Fluids (cc crystalloids) Fluids (cc crystalloids): 25 Drains Drains: None Anesthesia Moderate Procedural Complication(s) None Disposition PCU I attest to the content of the Intraoperative Record and any orders documented therein. Any exceptions are noted below. [facility] Card Cath Procedure Codes Cardiac Catheterization Procedure 1: Cardiovascular Cath Procedures: 70836 Coronaries and LHC (+/-LV) Moderate Sedation Procedure 1: Sedation/Anesthesia: 43013 Mod Sedation by the same physician;Init15 Min Child Age 5 & Up PG Care Time/CCT Total # of Minutes Spent Total Time Spent with Patient: Total time spent is greater than 50% in coordination of care (as documented) at patient's floor/unit and/or counseling patient:
--- NOTE | 2020-04-03 12:00 | Communication Note ---
Date of Service: April 03, 2020 Cath films reviewed with Dr Escamilla. Normal coronaries. Elevated LV filling pressures. Diagnosis is therefore anon ischemic cardiomyopathy. I called and updated her boyfriend , Anuj, phone [phone]. Plan: DC heparin. Will administer additional furosemide later today.
[2020-04-03] MEDS ORDERED: FUROSEMIDE 20 MG in SYRINGE 0 ML IV ONE (14:30)
[2020-04-03] MEDS: SPIRONOLACTONE 12.5 MG TAB PO SCH (15:22)
--- NOTE | 2020-04-03 22:06 | Electrocardiogram Report ---
Test Reason : Blood Pressure : / mmHG Vent. Rate : 065 BPM Atrial Rate : 065 BPM P-R Int : 174 ms QRS Dur : 090 ms QT Int : 492 ms P-R-T Axes : 060 043 116 degrees QTc Int : 511 ms Normal sinus rhythm T wave abnormality, consider lateral ischemia Prolonged QT Abnormal ECG When compared with ECG of 02-APR-2020 01:53, Borderline criteria for Inferior infarct are no longer Present T wave inversion no longer evident in Inferior leads T wave inversion now evident in Lateral leads QT has lengthened Confirmed by George Benson ([id number]) on 04/03/2020 10:06:22 PM Referred By: REFERRED SELF Confirmed By:George Benson
[2020-04-04] MEDS: lisinopril 2.5 MG TAB PO SCH (05:59)
[2020-04-04] MEDS: LEVOTHYROXINE SODIUM 112 MCG TABLET PO SCH (06:00)
[2020-04-04] MEDS: LORATADINE 10 MG TAB PO SCH (06:00)
[2020-04-04] MEDS: VITAMIN B COMPLEX TAB PO SCH (06:00)
[2020-04-04 07:32] LABS: Hematocrit (blood only) 34.6 % (37-47); Hemoglobin 11.4 g/dL (12.0-16.0); Mean Corpuscular Hemoglobin 29.5 pg (25-34); Mean Corpuscular Hgb Conc 32.9 g/dL (32-36); Mean Corpuscular Volume 89.6 fL (80-100); Mean Platelet Volume 9.7 fL (7.4-10.4); Platelet Count 349 K/uL (130-400); RDW Coefficient of Variation 13.7 % (11.5-14.5); RDW Standard Deviation 45.2 fL (36.4-46.3); Red Blood Count 3.86 M/uL (4.2-5.4); White Blood Count 10.34 K/uL (4.8-10.8)
[2020-04-04 07:41] LABS: BUN Creatinine Ratio 27.9 (10-20); Calcium 8.3 mg/dl (8.5-10.1); Est GFR (African American) 94.4; Est GFR (Non-African American) 81.5; Magnesium 2.4 mg/dl (1.8-2.4); Potassium 3.9 mmol/L (3.5-5.1)
--- NOTE | 2020-04-04 08:16 | Hospitalist Progress Note ---
Date of Service April 04, 2020 Assessment & Plan (1) Acute CHF: Acute CHF Nonischemic cardiomyopathy ? Tachycardia induced cardiomyopathy (hx palpitations the last 4 months, episodic tachyarrhythmia on outpatient Zio patch) On admission received aspirin, and IV heparin for ACS Initiated beta-teresita for ACS and new onset CHF troponin trended down Checked lipid profile TTE - Large sized septal and inferior wall motion abnormality with hypokinesis of the segments. LV systolic function is mildly reduced. EF 40 to 45%. Diastolic dysfunction, grade 2. R The left atrium is mildly dilated.V is normal in size and function Cardiology consulted RE ACS, CHF, pt underwent cardiac angiography on 04/03,revealed essentially normal coronary arteries with a 20% mid LAD bridging. Strict I/Os, daily weights, CHF education Received IV lasix in ED and during hospitalization, pt reported improvement in symptoms Discharge medications: Toprol-XL 50 mg daily, lisinopril, and Aldactone. Low-dose Lasix 20 mg Patient instructed to to avoid strenuous activity until cardiology follow-up in 1 week. Hypertension, stable Hypothyroidism, euthyroid as of today's TSH Prediabetes, hemoglobin A1c of 5.18 December 2019 Past tobacco use DVT prophylaxis. was initially on IV heparin, now d/c'ed Full code Admission and Anticipated Discharge Date Admission Date: April 02, 2020 Subjective Pt feels well, denies any chest tightness of shortness of breath. Also denies any cough. She is inquiring about going home. Review of Systems Review of Systems: All systems reviewed & are unremarkable except as noted in HPI & below Constitutional: no fever and no chills Respiratory: no cough and no dyspnea Cardiovascular: no chest pain and no palpitations Gastrointestinal: no abdominal pain, no nausea and no vomiting Physical Exam Physical Exam: GENERAL: WD/WN female in no distress, comfortable HEENT: NC/AT, Bespectacled, pink palpebral conjunctivae, no ptosis, moist buccal mucosa NECK : Supple, no tenderness CHEST : CTAB, good resp. effort, + mild bibasilar crackles, no wheezing HEART : RRR, no obvious murmurs ABDOMEN: Soft, nontender EXTREMITIES : No LE swelling/tenderness, moves extremities spontaneously and w/o difficulty SKIN: Normal color, warm, dry, well perfused NEUROLOGIC : alert and oriented x3, no facial asymmetry, speech fluent, moves extremities spontaneously and w/o difficulty Results & Data Results & Data ([facility]) Vital Signs (Past 12 Hours) Vital Signs Temp Pulse Pulse Resp BP Pulse Ox 04/04/20 08:11 36.4 C L 56 L 17 137/79 98 04/04/20 03:36 36.5 C 60 18 113/69 98 04/04/20 00:07 60 04/03/20 23:24 37.0 C 66 16 107/51 L 99 Laboratory Results 04/04/20 04/04/20 04/03/20 Range/Units 06:31 06:31 07:10 WBC 10.34 (4.8-10.8) K/uL RBC 3.86 L (4.2-5.4) M/uL Hgb 11.4 L (12.0-16.0) g/dL Hct 34.6 L (37-47) % MCV 89.6 (80-100) fL MCH 29.5 (25-34) pg MCHC 32.9 (32-36) g/dL RDW Std Deviation 45.2 (36.4-46.3) fL RDW Coeff of Jayson 13.7 (11.5-14.5) % Plt Count 349 (130-400) K/uL MPV 9.7 (7.4-10.4) fL Sodium 138 139 (136-145) mmol/L Potassium 3.9 D 3.3 L (3.5-5.1) mmol/L Chloride 106 103 (98-107) mmol/L Carbon Dioxide 28 32 (21-32) mmol/L Anion Gap 4.0 4.0 (3-11) BUN 22 H 23 H (7-18) mg/dl Creatinine 0.78 0.88 (0.6-1.2) mg/dl Est Cr Clr Drug Dosing 70.0 62.1 ml/min Est GFR ( Amer) 94.4 81.6 Est GFR (Non-Af Amer) 81.5 70.4 BUN/Creatinine Ratio 27.9 H 26.3 H (10-20) Glucose 97 97 (70-99) mg/dl Calcium 8.3 L 8.7 (8.5-10.1) mg/dl Magnesium 2.4 (1.8-2.4) mg/dl Troponin I 0.231 H* (0-0.045) ng/ml 04/03/20 Range/Units 07:10 WBC 8.34 (4.8-10.8) K/uL RBC 4.04 L (4.2-5.4) M/uL Hgb 12.1 (12.0-16.0) g/dL Hct 36.6 L (37-47) % MCV 90.6 (80-100) fL MCH 30.0 (25-34) pg MCHC 33.1 (32-36) g/dL RDW Std Deviation 46.5 H (36.4-46.3) fL RDW Coeff of Jayson 14.0 (11.5-14.5) % Plt Count 371 (130-400) K/uL MPV 9.8 (7.4-10.4) fL Sodium (136-145) mmol/L Potassium (3.5-5.1) mmol/L Chloride (98-107) mmol/L Carbon Dioxide (21-32) mmol/L Anion Gap (3-11) BUN (7-18) mg/dl Creatinine (0.6-1.2) mg/dl Est Cr Clr Drug Dosing ml/min Est GFR ( Amer) Est GFR (Non-Af Amer) BUN/Creatinine Ratio (10-20) Glucose (70-99) mg/dl Calcium (8.5-10.1) mg/dl Magnesium (1.8-2.4) mg/dl Troponin I (0-0.045) ng/ml Medications Administered Current Inpatient Medications Acetaminophen (Acetaminophen 325 Mg Tab) 650 mg PO Q4H PRN PRN Reason: Pain or Fever Stop: 05/02/20 05:56 Aspirin (Aspirin 81 Mg Ectab) 81 mg PO [facility] Stop: 05/03/20 08:59 Last Admin: 04/03/20 08:49 Dose: 81 mg Documented by: Atorvastatin Calcium (Atorvastatin 20 Mg Tab) 20 mg PO [facility] Stop: 05/02/20 11:29 Last Admin: 04/03/20 08:50 Dose: 20 mg Documented by: Promethazine HCl 6.25 mg/ (Sodium Chloride) 50.25 mls @ 201 mls/hr IV Q6H PRN PRN Reason: Nausea And Vomiting Stop: 05/02/20 05:56 Last Infusion: 04/03/20 21:30 Dose: Infused Documented by: Lorazepam (Ativan) 0.25 mg in 0.5 mls @ 0.5 mls/min IV Q4H PRN PRN Reason: Anxiety Stop: 05/02/20 05:56 Last Admin: 04/03/20 10:04 Dose: 0.5 mls/min Documented by: Levothyroxine Sodium (Levothyroxine Sodium 112 Mcg Tablet) 112 mcg PO DAILYBB [facility] Stop: 05/02/20 06:29 Last Admin: 04/04/20 06:00 Dose: 112 mcg Documented by: Lisinopril (Lisinopril 2.5 Mg Tab) 2.5 mg PO DAILYBB [facility] Stop: 05/02/20 06:29 Last Admin: 04/04/20 05:59 Dose: 2.5 mg Documented by: Loratadine (Loratadine 10 Mg Tab) 10 mg PO DAILYBB [facility] Stop: 05/02/20 06:29 Last Admin: 04/04/20 06:00 Dose: 10 mg Documented by: Metoprolol Tartrate (Metoprolol Tartrate 25 Mg Tab) 25 mg PO BID [facility] Stop: 05/03/20 20:59 Last Admin: 04/03/20 20:51 Dose: 25 mg Documented by: Morphine Sulfate (Morphine Sulfate 2 Mg/Ml Carp) 2 mg IV Q3H PRN PRN Reason: Pain Stop: 04/16/20 05:56 Nitroglycerin (Nitroglycerin Sl 0.4 Mg/Tab Tab) 0.4 mg SL UD PRN PRN Reason: Chest Pain Stop: 05/02/20 05:56 Spironolactone (Spironolactone 12.5 Mg Tab) 12.5 mg PO DAILY [facility] Stop: 05/03/20 14:14 Last Admin: 04/03/20 15:22 Dose: 12.5 mg Documented by: Tramadol HCl (Tramadol Hcl 50 Mg Tablet) 25 - 50 mg PO Q4H PRN PRN Reason: Pain Stop: 05/02/20 05:56 Vitamin B Complex (Vitamin B Complex Tab) 1 tab PO DAILYBB [facility] Stop: 05/02/20 06:29 Last Admin: 04/04/20 06:00 Dose: 1 tab Documented by:
[2020-04-04] MEDS: ASPIRIN 81 MG ECTAB PO SCH (08:45)
[2020-04-04] MEDS: METOPROLOL TARTRATE 25 MG TAB PO SCH (08:45)
[2020-04-04] MEDS: ATORVASTATIN 20 MG TAB PO SCH (08:45)
[2020-04-04] MEDS: SPIRONOLACTONE 12.5 MG TAB PO SCH (09:46)
--- NOTE | 2020-04-04 10:55 | Cardiology Progress Note ---
Date of Service April 04, 2020 Assessment & Plan (1) NICM (nonischemic cardiomyopathy): (2) Acute CHF: (3) HTN (hypertension): (4) Elevated troponin I level: Transition patient to Toprol-XL 50 mg daily. Continue other evidence-based heart failure therapies including lisinopril, and Aldactone. Add low-dose Lasix 20 mg daily due to elevated left ventricular end-diastolic pressure noted on cardiac catheterization. Repeat basic metabolic panel in 1 week post discharge. Post cardiac catheterization activity restrictions listed below. Patient instructed to to avoid strenuous activity until cardiology follow-up in 1 week. All questions answered to patient satisfaction. ACTIVITY RECOMMENDATIONS: Excess manipulation of the wrist should be avoided for the next 24-48 hours. * No lifting over 2 pounds (approximately a 1/2 gallon of milk) with the utilize d arm for 24 hours. * No strenuous activity such as bowling or tennis for 3 days. * Keep the site of the procedure covered with a bandage for 24 hours. *You may shower the day after the procedure. Do not take a tub bath or submerge the puncture site in water for the next 3 days. *Do not operate any motorized equipment for 3 days. SPECIAL CARE INSTRUCTIONS: The site may be slightly bruised and sore following your procedure. Should any of the following occur, contact the Dr. who performed your procedure. 1. Redness/inflammation, swelling, chills, or fever, or colored drainage at procedure site within 3-7 days after your procedure. 2. Coldness, discoloration, ongoing numbness, severe pain, or swelling. Expect mild tingling of hand and tenderness at the puncture site for up to three days. If this persists beyond three days, or other symptoms develop, notify the Dr. who performed your procedure. BLEEDING: If the procedure site on your wrist begins to bleed, do not panic 1. Place 1 or 2 fingers firmly just slightly above the insertion site to stop the bleeding. You may be able to feel your pulse as you hold pressure. 2. Lift your finger after 5 minutes to see if the bleeding has stopped. 3. Once the bleeding has stopped, gently wipe the wrist area clean with a bandage. * If the bleeding from your wrist does not stop after 10 minutes, or if there is a large amount of bleeding or spurting, call 911 (do not drive yourself to the hospital). SKIN IRRITATION: * You may experience some redness and/or swelling in the area where radiation was administered. If any skin irritation occurs, please contact your family physician. Admission and Anticipated Discharge Date Admission Date: April 02, 2020 Subjective Patient seen and examined the bedside. Denies chest pain or shortness of breath today. Cardiac catheterization performed urgently 04/03/2020 due to catheterization revealed essentially normal coronary arteries with a 20% mid LAD bridging. Patient complains of dizziness this morning. Heart rate and blood pressure within acceptable range. Has many questions regarding treatment options and follow-up. She is also requesting guidance regarding seeking a second cardiology opinion in town. Anxious for discharge. Offers no other concerns/complaints at this time. Review of Systems Review of Systems: All systems reviewed & are unremarkable except as noted in HPI & below Physical Exam Constitutional: well developed, well nourished and healthy appearing Respiratory: normal respiratory effort, lungs clear to auscultation A uscultation: no crackles, no rales, no rhonchi, no wheezes and no pleural rub Cardiovascular: Vessels: no JVD and no carotid bruit Extremities: no edema Gastrointestinal (Abdomen): Percussion/Palpation: abdomen soft; abdomen nont enriqueta, no guarding and abdomen not rigid Neurologic: CN's II-XI intact bilaterally and moves all extremities Psychiatric: A+Ox3, euthymic affect Results & Data ([place]) Vital Signs (Past 12 Hours) Vital Signs Temp Pulse Pulse Resp BP Pulse Ox 04/04/20 09:00 56 L 04/04/20 08:11 36.4 C L 56 L 17 137/79 98 04/04/20 03:36 36.5 C 60 18 113/69 98 04/04/20 00:07 60 04/03/20 23:24 37.0 C 66 16 107/51 L 99
--- NOTE | 2020-04-04 11:56 | Discharge Summary ---
Date of Service April 04, 2020 Admission HPI Per Admitting Provider History obtained from patient and records. Medical history significant for hypertension, hypothyroidism, prediabetes, past tobacco use. In the last 4 months patient would have daily palpitations accompanied by mina sient chest tightness symptoms. No shortness of breath. Not related to exertion. No unusual stress at home. No inordinate caffeine or alcohol intake. Blood pressure controlled at home as per patient. Outpatient Zio patch monitor requested by PCP showed brief episodes of SVT. Medication offered to slow heartbeat if significantly bothersome as per outpatient documentation. Persistent daily palpitations with chest tightness symptoms as per patient. Around 8 PM last night patient noted chest heaviness across her chest more pronounced than usual chest tightness with palpitations. Shortness of breath with expectoration of pink frothy sputum. No fluid retention. No fever, no chills. No recent flulike illness/COVID-19 contacts. At the ER, patient given Solu-Medrol and bronchodilator treatment for possible bronchitis. Aspirin, nitroglycerin, IV heparin later administered for possible ACS. Lasix given for CHF. Patient currently feeling better. 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 Admission Exam Per Admitting Provider GENERAL: Comfortable, pleasant, no respiratory distress SKIN: Normal color, warm HEENT: Bespectacled, pink palpebral conjunctivae, no ptosis, moist buccal mucosa, nasal cannula in place NECK : Supple, no tenderness CHEST : Decreased breath sounds, minimal left lateral chest wall tenderness HEART : RRR, no obvious murmurs ABDOMEN: Soft, nontender EXTREMITIES : No LE swelling/tenderness, no other conspicuous deformities noted NEUROLOGIC : Coherent, no facial asymmetry, no other gross focality Principal Diagnosis Acute CHF Nonischemic cardiomyopathy Discharge Exam GENERAL: WD/WN female in no distress, comfortable HEENT: NC/AT, Bespectacled, pink palpebral conjunctivae, no ptosis, moist buccal mucosa NECK : Supple, no tenderness CHEST : CTAB, good resp. effort, + mild bibasilar crackles, no wheezing HEART : RRR, no obvious murmurs ABDOMEN: Soft, nontender EXTREMITIES : No LE swelling/tenderness, moves extremities spontaneously and w/o difficulty SKIN: Normal color, warm, dry, well perfused NEUROLOGIC : alert and oriented x3, no facial asymmetry, speech fluent, moves extremities spontaneously and w/o difficulty Discharge Data Allergies Allergy/AdvReac Type Severity Reaction Status Date / Time latex Allergy Intermediate RASH, SKIN Verified 04/02/20 00:01 IRRITATION nickel Allergy Intermediate RASH, SKIN Verified 04/02/20 00:01 IRRITATION Iodinated Contrast Media Allergy Unknown Hives Verified 04/02/20 06:28 Consultations 04/02/20 01:40 ED Decision to Admit Stat 04/02/20 05:57 Consult Cardiology Routine Procedures Performed Operation Date: 04/03/20 10:30 Actual Procedures p Cath, Left with Cors and Vent - Paul Escamilla MD s Cineradiography w/Routine Exam - Paul Escamilla MD Ordered Studies 04/02/20 00:21 CT angio chest PE protocol Urgent IMPRESSION: 1. Lower lobe septal edema and multifocal bilateral groundglass pulmonary opacities. Likely diagnostic considerations include pulmonary edema versus a multifocal pneumonia possibly viral. Clinical and radiographic follow-up recommended. 2. Healing left anterior third rib fracture, an acute/subacute left anterior fourth rib fracture. 04/03/20 10:27 CL Cath Imgs for PACS use only Stat Hospital Course (1) Acute CHF: Acute CHF Nonischemic cardiomyopathy ? Tachycardia induced cardiomyopathy (hx palpitations the last 4 months, episodic tachyarrhythmia on outpatient Zio patch) vs. ? 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 other cause On admission received aspirin, and IV heparin for ACS Initiated beta-teresita for ACS and new onset CHF troponin trended down Checked lipid profile TTE - Large sized septal and inferior wall motion abnormality with hypokinesis of the segments. LV systolic function is mildly reduced. EF 40 to 45%. Diastolic dysfunction, grade 2. R The left atrium is mildly dilated.V is normal in size and function Cardiology consulted RE ACS, CHF, pt underwent cardiac angiography on 04/03,revealed essentially normal coronary arteries with a 20% mid LAD bridging. Strict I/Os, daily weights, CHF education Received IV lasix in ED and during hospitalization, pt reported improvement in symptoms Discharge medications: Toprol-XL 50 mg daily, lisinopril, and Aldactone. Low-dose Lasix 20 mg Patient instructed to avoid strenuous activity until cardiology follow-up in 1 week. Hypertension, stable Hypothyroidism, euthyroid as of today's TSH Prediabetes, hemoglobin A1c of 5.18 December 2019 Past tobacco use Total Time Total Time Spent Total Time Spent (In Minutes): 40 Total Time Includes: Examination of the Patient, Discharge Planning, Medication Reconciliation and Communication With Other Providers Discharge Plan Discharge Items Patient Disposition: Home - Self-Care Reason For Visit: CHF Discharge Diagnosis: Acute CHF Nonischemic cardiomyopathy Activity: As commented below Activity Comment: Avoid strenuous activity until cardiology follow-up in 1 week. Non-emergency contact: Primary Care Provider and Booking Police Officer Call non-emergency contact if: you have any medication questions and your symptoms worsen Follow-up/Referrals: Oseas Holguin MD [Primary Care Provider] - (Date & Time 04/11/2020 9:00 AM Provider Oseas Holguin MD Department [facility] ) Diet: Heart Healthy and Low Sodium (2gm) Fluids: 1800ml (7 cups) Addtl Attending Provider Instructions: ACTIVITY RECOMMENDATIONS: Excess manipulation of the wrist should be avoided for the next 24-48 hours. * No lifting over 2 pounds (approximately a 1/2 gallon of milk) with the utilized arm for 24 hours. * No strenuous activity such as bowling or tennis for 3 days. * Keep the site of the procedure covered with a bandage for 24 hours. *You may shower the day after the procedure. Do not take a tub bath or submerge the puncture site in water for the next 3 days. *Do not operate any motorized equipment for 3 days. SPECIAL CARE INSTRUCTIONS: The site may be slightly bruised and sore following your procedure. Should any of the following occur, contact the Dr. who performed your procedure. 1. Redness/inflammation, swelling, chills, or fever, or colored drainage at procedure site within 3-7 days after your procedure. 2. Coldness, discoloration, ongoing numbness, severe pain, or swelling. Expect mild tingling of hand and tenderness at the puncture site for up to three days. If this persists beyond three days, or other symptoms develop, notify the Dr. who performed your procedure. BLEEDING: If the procedure site on your wrist begins to bleed, do not panic 1. Place 1 or 2 fingers firmly just slightly above the insertion site to stop the bleeding. You may be able to feel your pulse as you hold pressure. 2. Lift your finger after 5 minutes to see if the bleeding has stopped. 3. Once the bleeding has stopped, gently wipe the wrist area clean with a bandage. * If the bleeding from your wrist does not stop after 10 minutes, or if there is a large amount of bleeding or spurting, call 911 (do not drive yourself to the hospital). SKIN IRRITATION: * You may experience some redness and/or swelling in the area where radiation was administered. If any skin irritation occurs, please contact your family physician. Call your Primary Care doctor if any of the following symptoms or problems start or get worse: * Shortness of breath or difficulty breathing * Wake up at night short of breath * Chest pain * Cough * Swelling of your hands, feet, or legs * More fatigued or tired with your normal activity * Palpitations - sudden fast heart beats WEIGHT * Weigh yourself every morning after using the bathroom. * Use the same scale. * Wear the same amount of clothing. * Write your weight down on a chart. * Call your Primary Care doctor if you gain more than 2-3 pounds in 1-2 days. MEDICATIONS * Use this discharge instruction sheet for medication instructions. * Take your medications at the time your doctor ordered. * Do not skip a dose of your medicines. * If you miss a dose of medicine, take it as soon as possible, but DO NOT DOUBLE A DOSE. * Read your medicine information when you get home. * Know all of the side effects of your medicine. If in doubt, ask your pharmacist * Call your Primary Care doctor's office if you have any side effects. * Be sure all of your doctors know what medicine and herbs you take (including cold, flu, and herbal medicine). Take the following with you to your follow-up doctor appointments: * Weight Chart * Medication List * List of questions Do not drink excessive alcohol, beer or wine. 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 You will be contacted about the appointment. Obtain blood work, BMP, in 1 week, on 04/11/2020. Script was given to you on discharge. Follow-up with primary care doctor within 1-2 weeks. The appointment was scheduled for you for April 11, 2020. Please read instructions above in detail. Take medications as prescribed, prescriptions were sent to your pharmacy. It was a pleasure taking care of you! Please follow all the instructions, and take care of yourself. Mark Carroll MD Pending Studies at Discharge: No Stand-Alone Forms: My [facility], Smoking Cessation Medications and DC Order Prescriptions: New metoprolol succinate 50 mg Tablet Extended Release 24 Hr 50 mg PO QAM 30 Days Qty: 30 RF: 0 spironolactone 25 mg Tablet 12.5 mg PO DAILY 30 Days Qty: 15 RF: 0 aspirin 81 mg Tablet,Delayed Release (Dr/Ec) 81 mg PO QAM 30 Days Qty: 30 RF: 0 furosemide 20 mg Tablet 20 mg PO QAM 30 Days Qty: 30 RF: 0 Continued rizatriptan [Maxalt] 10 mg tablet 10 mg PO Q2H MDD 30 mg PRN (Reason: Migraine Headache) RF: 0 triamcinolone acetonide [Triderm] 0.1 % cream 1 applic TOPICAL BID PRN (Reason: Itching) RF: 0 lisinopril [Zestril] 2.5 mg tablet 2.5 mg PO DAILYBB RF: 0 loratadine [Claritin] 10 mg Tablet 10 mg PO DAILYBB RF: 0 vitamin B complex Capsule 1 cap PO DAILYBB RF: 0 levothyroxine [Synthroid] 112 mcg tablet 112 mcg PO DAILYBB RF: 0 Discharge Orders: Discharge Order (Routine); Ordered 04/04/20 Ordered By: Harvinder Carroll Admission Data Admit Date/Time: 04/02/20 03:08 Attending Provider: Harvinder Carroll Admit Provider: Luis Carlos Martínez Primary Care Provider: Oseas Holguin Other Providers: Luis Carlos Martínez ; Ketan Salinas ; Gary Owen ; Sam Martinez ; Ankur Urrutia ; Maximo Paredes ; Milton Pedro ; Ambreen Peguero ; Tana Spears ; Sergio Peoples Other Interventions: Discharge Summary Assessment (RN) Last Done: 04/04/20 11:34
--- NOTE | 2020-04-05 05:44 | Electrocardiogram Report ---
Test Reason : Blood Pressure : / mmHG Vent. Rate : 059 BPM Atrial Rate : 059 BPM P-R Int : 180 ms QRS Dur : 076 ms QT Int : 478 ms P-R-T Axes : 055 029 092 degrees QTc Int : 473 ms Sinus bradycardia T wave abnormality, consider lateral ischemia Abnormal ECG When compared with ECG of 03-APR-2020 09:24, No significant change was found Confirmed by George Benson ([id number]) on 04/05/2020 5:44:34 AM Referred By: REFERRED SELF Confirmed By:Geogre Benson
[2020-04-05] MEDS ORDERED: METOPROLOL SUCC 50MG EXT REL TAB PO SCH (09:00)
[2020-04-05] MEDS ORDERED: FUROSEMIDE 20 MG TAB PO SCH (09:00)
== END 2020-04-04 13:21 | disposition home or self-care (01) | DRG 287 ==
LOC: ED 22:40 → SUATTDRO 04-02 03:08 → 2S 04-02 03:08